=== PATIENT | female | born 1985 | race Caucasian/White ===

== ENCOUNTER 2022-04-01 16:26 | Emergency (ER) | payer MEDICARE, MEDICAID, SELFPAY ==
[2022-04-01 16:27] VITALS: BP 132/77; PULSE 134; RESP 18; TEMP 38.8; O2SAT 100; BMI 39.5
--- NOTE | 2022-04-01 16:29 | XR_ITS ---
PROCEDURE INFORMATION: Exam: XR Chest Exam date and time: 04/01/2022 4:43 PM Age: 36 years old Clinical indication: Fever TECHNIQUE: Imaging protocol: Radiologic exam of the chest. Views: 1 view. COMPARISON: No relevant prior studies available. FINDINGS: Lungs: Unremarkable. No consolidation. Pleural spaces: Unremarkable. No pleural effusion. No pneumothorax. Heart/Mediastinum: Unremarkable. No cardiomegaly. Bones/joints: Unremarkable. IMPRESSION: No acute findings.
--- NOTE | 2022-04-01 16:30 | HMH.EDGENADL ---
ED Disposition Clinical Impression: Panic attack Fever Qualifiers: Fever type: unspecified Qualified Code(s): R50.9 - Fever, unspecified Disposition: Home, Self-Care Condition on Discharge: Good Referrals: Jarett Stephens MD [Primary Care Provider] - - Critical Care Critical Care Time: No Attestation: On , the high probability of a clinically significant, sudden or life threatening deterioration of the following system(s) required my full and direct attention, intervention and personal management. The time I documented below is in addition to time spent performing reported procedures but includes the following listed in this critical care notation. Medical Decision Making - Medical Records Medical records reviewed: Yes: I reviewed the patient's medical records. - Esequiel Inquiry Pt receiving controlled substance: No Vital Signs: 04/01/22 16:27 04/01/22 18:37 Temperature 101.9 F H 98.1 F Temperature Source Rectal Oral Pulse Rate 110 H Pulse Rate [Brachial] 134 H Respiratory Rate 18 20 Blood Pressure 139/67 Blood Pressure [Right Arm] 132/77 Blood Pressure Mean [Right Arm] 95 Blood Pressure Source Automatic Cuff Blood Pressure Source [Right Arm] Automatic Cuff Blood Pressure Position Sitting Blood Pressure Position [Right Arm] Sitting 02 Sat by Pulse Oximetry 100 100 Oxygen Delivery Method Room Air Nasal Cannula Oxygen Flow Rate (LPM) 2 - Lab Data Lab Results 04/01/22 16:20: WBC 10.6, RBC 4.72, Hgb 13.2, Hct 40.3, MCV 85.3, MCH 28.0, MCHC 32.8, RDW 14.4, Plt Count 218, MPV 8.0, Neut % (Auto) 72.1, Lymph % (Auto) 16.9, [place] % (Auto) 8.5, Eos % (Auto) 0.9, Baso % (Auto) 1.6, Neut # (Auto) 7.6, Lymph # (Auto) 1.8, [place] # (Auto) 0.9, Eos # (Auto) 0.1, Baso # (Auto) 0.2 04/01/22 16:20: Sodium 135 L, Potassium 4.2, Chloride 101, Carbon Dioxide 24, Anion Gap 14.2, BUN 6 L, Creatinine 0.60, Estimated GFR 112, Est GFR ( Amer) 136, Glucose 141 H, Calcium 9.6, Total Bilirubin 0.4, AST 31, ALT 21, Alkaline Phosphatase 73, Total Protein 7.1, Albumin 4.0, Globulin 3.1, Albumin/Globulin Ratio 1.3 04/01/22 16:20: Lactate 2.0 04/01/22 16:32: Urine Color Straw, Urine Appearance Clear, Urine pH 6.5, Ur Specific [place] <= 1.005, Urine Protein Negative, Urine Glucose (UA) Negative, Urine Ketones Negative, Urine Blood Negative, Urine Nitrate Negative, Urine Bilirubin Negative, Urine Urobilinogen 0.2, Ur Leukocyte Esterase Negative, Urine RBC None, Urine WBC None, Ur Squamous Epith Cells None, Urine Bacteria None Result diagrams: 04/01/22 16:20 04/01/22 16:20 Orders (Tests/Meds): ED MEDICATIONS Discontinued Medications Generic Name Dose Route Start Last Admin Trade Name Freq PRN Reason Stop Dose Admin Acetaminophen 1,000 mg 04/01/22 16:29 04/01/22 16:51 Acetaminophen 500mg Tab PO 04/01/22 16:30 1,000 mg ONCE ONE Administration Diazepam 5 mg 04/01/22 17:25 04/01/22 18:13 Diazepam 5mg Tablet PO 04/01/22 17:26 5 mg ONCE ONE Administration Sodium Chloride 1,000 mls @ 999 mls/hr 04/01/22 16:30 04/01/22 18:13 Sod Chlor 0.9% 1000ml Bag IV 04/01/22 17:30 999 mls/hr .Q1H1M MARK Administration Sodium Chloride 1,000 mls @ 999 mls/hr 04/01/22 16:30 04/01/22 16:51 Sod Chlor 0.9% 1000ml Bag IV 04/01/22 17:30 999 mls/hr .Q1H1M MARK Administration ORDERS Category Date Time Status EKG Request [ECG Request by /Court] Stat Y 04/01/22 16:32 Ordered - ECG Data Tracing #1 I reviewed this ECG and interpreted as documented below: ekg by sinus 104, poss lae, no st elev - Reevaluation(s) Time: 17:32 (reeval, aox4, appears well, says she had a panic attack today, fever unexplained otherthan heavily clothed out in heat, still with some resting tremulous, otherwise neuro intact) Time: 18:34 Reevaluation #3: reeval, fever resolved, resolved, vss, appears well General Adult HPI - General Stated complaint: unresponsive Time Seen by Provider: 07
[2022-04-01 16:37] LABS: Basophils # 0.2 K/mm3 (0-0.2); Basophils % 1.6 % (0.1-2.0); Eosinophils # 0.1 K/mm3 (0.0-0.4); Eosinophils % 0.9 % (0.1-12.0); Hematocrit 40.3 % (37.0-47.0); Hemoglobin 13.2 g/dL (12.2-16.2); Lymphocytes # 1.8 K/mm3 (0.7-4.5); Lymphocytes % 16.9 % (10-50); Mean Corpuscular HGB Conc 32.8 g/dL (31.8-35.4); Mean Corpuscular Volume 85.3 fl (81-99); Monocytes # 0.9 K/mm3 (0.1-1.0); Monocytes % 8.5 % (1.7-9.3); Neutrophils # 7.6 K/mm3 (1.8-7.8); Neutrophils % 72.1 % (37.0-80.0); Platelet Count 218 K/mm3 (142-424); Red Blood Count 4.72 M/mm3 (4.20-5.40); Red Cell Distribution Width 14.4 % (11.5-17.5); White Blood Count 10.6 K/mm3 (4.8-10.8)
[2022-04-01 16:37] LABS: Microscopic, Urine URINE MICROSCOPIC (MICROSCOPIC)
[2022-04-01 16:38] LABS: Appearance,Urine CLEAR (Clear); Bilirubin,Urine Negative (Negative); Blood, Urine Negative (Negative); Color,Urine STRAW (Yellow); Glucose,Urine (UA) Negative (Negative); Ketones,Urine Negative (Negative); Leukocyte Esterase,Urine Negative (Negative); Nitrate,Urine Negative (Negative); PH,Urine 6.5 (5.0-8.5); Protein,Urine Negative (Negative); Specific Gravity, Urine <= 1.005 (1.005-1.030); Urobilinogen,Urine 0.2 EU/dl (0.2)
[2022-04-01 16:43] LABS: Chloride 101 mmol/L (98-107); Potassium 4.2 mmoL/L (3.5-5.1); Sodium 135 mmol/L (136-145)
[2022-04-01 16:46] LABS: Alanine Aminotransferase 21 U/L (12-78); Albumin/Globulin Ratio 1.3 (1.1-1.8); Alkaline Phosphatase 73 U/L (38-126); Anion Gap 14.2 mEq/L (5-15); Aspartate Amino Transferase 31 U/L (14-36); Bilirubin,Total 0.4 mg/dl (0.2-1.3); Blood Urea Nitrogen 6 mg/dl (7-17); Calcium 9.6 mg/dl (8.4-10.2); Carbon Dioxide 24 mmol/L (22.0-30.0); Estimated Glomerular Filt Rate 112 ml/min (>60); GFR (African American) 136 ML/MIN (>60); Globulin 3.1 g/dL (1.3-3.2); Glucose 141 mg/dl (74-100); Total Protein,Serum 7.1 g/dl (6.3-8.2)
--- NOTE | 2022-04-01 18:19 | ECG_ITS ---
APPROVED REPORT Exam: Resting ECG HR:104 bpm ECG Measurements Heart Rate 104 AXES VA 163 P 42 QRSd 83 QRS 8 QT 334 T 9 QTc 395 Conclusion SINUS TACHYCARDIA POSSIBLE LEFT ATRIAL ENLARGEMENT [-0.1mV P-WAVE IN V1/V2] ABNORMAL RHYTHM ECG UNCONFIRMED REPORT Electronically signed by : Steve Clark MD 04/02/2022 17:57:36
[2022-04-01 18:37] VITALS: BP 139/67; PULSE 110; RESP 20; TEMP 36.7; O2SAT 100
--- NOTE | 2022-04-01 19:15 | PC.NURSE ---
[facility] notified that patient is ready to go back
[2022-04-01 20:14] VITALS: BP 140/68; PULSE 100; RESP 18; TEMP 36.8; O2SAT 99
== END 2022-04-01 20:32 | disposition home or self-care (01) ==
PROVIDERS: Emergency Provider Emergency Medicine; PCP Emergency Medicine
DX: R50.9 Fever, unspecified (principal)
CPT/HCPCS: 71045; 80053; 81001; 83605; 85025; 93005; 99213; G0463

== ENCOUNTER → 2022-06-09 10:53 | Outpatient (CLI) | payer MEDICARE, MEDICAID, SELFPAY ==
--- NOTE | 2022-06-17 09:30 | PC.NURSE ---
[facility] DEVICE SENT WITH PATIENT - RETURNED WITH NO DATA - NO CHARGE TO PATIENT - [facility] OFFICE NOTIFIED.
== END ==
PROVIDERS: PCP Nurse Practitioner Family; Visit Provider Nurse Practitioner Family
DX: G47.33 Obstructive sleep apnea (adult) (pediatric) (principal)
CPT/HCPCS: G0399

== ENCOUNTER 2022-06-19 13:06 | Emergency (ER) | payer MEDICARE, MEDICAID, SELFPAY ==
[2022-06-19 13:06] VITALS: BP 117/84; PULSE 106; RESP 18; TEMP 36.5; O2SAT 94; BMI 34.9
--- NOTE | 2022-06-19 13:09 | XR_ITS ---
FINAL REPORT CLINICAL HISTORY: SOB/CP COMPARISON: April 01, 2022 FINDINGS: The heart size is normal. The mediastinum is within normal limits. Lungs are hypoinflated but clear. There is no pleural effusion. There is no pneumothorax. The bony thorax is intact. IMPRESSION: No acute cardiopulmonary process. Reviewed, Interpreted and Dictated by Erlinda Cheema MD Transcribed by James Ramos Authenticated and [facility]
--- NOTE | 2022-06-19 13:10 | HMH.EDGENADL ---
Discharge Plan Disposition Patient Disposition: Home, Self-Care Condition: Good Prescriptions Prescriptions: No Action medroxyprogesterone [Depo-Provera] 150 mg/mL suspension 150 mg IM [id number] Qty: 1 2RF Referrals Follow up/Referrals: Jarett Stephens MD [Primary Care Provider] - See instructions Clinical Impressions Clinical Impression: Sinus tachycardia, Hypertension Discharge ED Provider: Royal Eduardo General Adult HPI General Chief complaint: Recheck/Abnormal Lab/Rx Stated complaint: GENERAL WEAKNESS Time Seen by Provider: 06/19/22 13:12 History of Present Illness HPI narrative: 36-year-old female brought in by EMS for persistent elevated heart rate and blood pressure. This had been discussed with her PCP who advised evaluation in the emergency department. She states she is on some psychiatric medications which she had been off of for a few days and became very anxious. Reported initial heart rate was in the 140s and is about 110 currently. She denies any chest pain, shortness of breath, nausea, vomiting, diaphoresis, palpitations, lightheadedness or dizziness, leg swelling, history of DVT or PE. Denies any other symptoms at this time Related Data Previous Rx's Medication Instructions Recorded medroxyprogesterone 150 mg/mL 150 mg IM [id number] #1 mL 05/02/22 intramuscular suspension (Depo-Provera) Allergies Allergy/AdvReac Type Severity Reaction Status Date / Time latex Allergy Verified 06/19/22 13:17 guaifenesin [From Mucinex] AdvReac Verified 06/19/22 13:17 pseudoephedrine AdvReac Verified 06/19/22 13:17 [From Sudafed] [facility] Social History Smoking Status: Never smoker alcohol intake: never current occupational status: unemployed Travel in the last 8 weeks: None ROS Obtained: Yes Systems reviewed as appropriate & no additional complaints except as documented Constitutional Constitutional: Reports system reviewed and no additional complaints, except as documented Eyes Eyes: Reports system reviewed and no additional complaints, except as documented ENT Ears, Nose, Mouth, and Throat: Reports system reviewed and no additional complaints, except as documented Cardiovascular Cardiovascular: Reports system reviewed and no additional complaints, except as documented Respiratory Respiratory: Reports system reviewed and no additional complaints, except as documented Gastrointestinal Gastrointestingal: Reports system reviewed and no additional complaints, except as documented Genitourinary Female Genitourinary: Reports system reviewed and no additional complaints, except as documented Musculoskeletal Musculoskeletal: Reports system reviewed and no additional complaints, except as documented Integumentary/Breasts Skin/Breast: Reports system reviewed and no additional complaints, except as documented Neurologic Neurologic: Reports system reviewed and no additional complaints, except as documented Endocrine Endocrine: Reports system reviewed and no additional complaints, except as documented Hematologic/Lymphatic Henatologic/Lymphatic: Reports system reviewed and no additional complaints, except as documented Allergic/Immunologic Allergic/Immunologic: Reports system reviewed and no additional complaints, except as documented Physical Exam General General appearance: alert and in no apparent distress Head Head exam: atraumatic, normocephalic and normal inspection Eye Eye exam: Present normal appearance, PERRL and EOMI ENT ENT exam: Present normal exam, normal oropharynx, mucous membranes moist, TM's normal bilaterally and normal external ear exam Neck Neck exam: Present normal inspection, full ROM and trachea midline; Absent meningismus or lymphadenopathy Chest Chest inspection: Present normal inspection and symmetric chest wall rise; Absent tenderness Respiratory Respiratory exam: Present normal lung sounds bilaterally
[2022-06-19 13:21] VITALS: PULSE 109; O2SAT 94
--- NOTE | 2022-06-19 13:23 | ECG_ITS ---
APPROVED REPORT Exam: Resting ECG HR:99 bpm ECG Measurements Heart Rate 99 AXES NC 163 P 53 QRSd 85 QRS 53 QT 344 T 20 QTc 400 Conclusion SINUS RHYTHM LOW QRS VOLTAGE IN PRECORDIAL LEADS [QRS DEFLECTION < 1.0 mV IN CHEST LEADS] NONSPECIFIC T-WAVE ABNORMALITY BORDERLINE ECG UNCONFIRMED REPORT Electronically signed by : Steve Clark MD 06/19/2022 15:55:49
[2022-06-19 13:28] LABS: Basophils # 0.1 K/mm3 (0-0.2); Basophils % 0.8 % (0.1-2.0); Eosinophils # 0.1 K/mm3 (0.0-0.4); Eosinophils % 2.2 % (0.1-12.0); Hematocrit 39.2 % (37.0-47.0); Hemoglobin 12.8 g/dL (12.2-16.2); Lymphocytes % 32.5 % (10-50); Mean Corpuscular HGB Conc 32.7 g/dL (31.8-35.4); Mean Corpuscular Hemoglobin 27.9 pg (27.0-31.2); Mean Corpuscular Volume 85.4 fl (81-99); Mean Platelet Volume 7.5 fl (7.4-10.4); Monocytes # 0.5 K/mm3 (0.1-1.0); Neutrophils # 3.4 K/mm3 (1.8-7.8); Neutrophils % 55.5 % (37.0-80.0); Platelet Count 179 K/mm3 (142-424); Red Cell Distribution Width 15.3 % (11.5-17.5); White Blood Count 6.1 K/mm3 (4.8-10.8)
[2022-06-19 13:31] VITALS: BP 121/100; PULSE 109; O2SAT 97
[2022-06-19 13:31] LABS: Chloride 100 mmol/L (98-107); Potassium 3.8 mmoL/L (3.5-5.1); Sodium 139 mmol/L (136-145)
[2022-06-19 13:34] LABS: Alanine Aminotransferase 22 U/L (12-78); Albumin Level 3.6 g/dl (3.5-5.0); Albumin/Globulin Ratio 1.2 (1.1-1.8); Alkaline Phosphatase 87 U/L (38-126); Anion Gap 16.8 mEq/L (5-15); Aspartate Amino Transferase 30 U/L (14-36); Blood Urea Nitrogen 6 mg/dl (7-17); Calcium 8.3 mg/dl (8.4-10.2); Carbon Dioxide 26 mmol/L (22.0-30.0); Creatinine Clearance Estimated 136 mL/min (50-200); Estimated Glomerular Filt Rate 94 ml/min (>60); GFR (African American) 114 ML/MIN (>60); Globulin 2.9 g/dL (1.3-3.2); Glucose 177 mg/dl (74-100); Total Protein,Serum 6.5 g/dl (6.3-8.2)
[2022-06-19 13:35] LABS: Magnesium 1.6 mg/dl (1.6-2.3)
[2022-06-19 13:40] LABS: Bilirubin,Total < 0.1 mg/dl (0.2-1.3)
[2022-06-19 13:44] LABS: NT Pro Brain Natriuretic Pep. 28.4 pg/mL (0-125)
[2022-06-19 13:49] LABS: Troponin I < 0.01 ng/ml (0.00-0.034)
[2022-06-19 14:00] VITALS: BP 114/87; PULSE 98; O2SAT 96
[2022-06-19 14:30] VITALS: BP 121/82; PULSE 94; RESP 17; O2SAT 98
--- NOTE | 2022-06-19 14:50 | PC.NURSE ---
pt sitting up in chair, waiting to be discharged
[2022-06-19 15:22] VITALS: BP 119/80; PULSE 92; RESP 17; TEMP 36.6; O2SAT 98
== END 2022-06-19 15:23 | disposition home or self-care (01) ==
PROVIDERS: Emergency Provider Emergency Medicine; PCP Emergency Medicine
DX: I10 Essential (primary) hypertension (principal); R00.0 Tachycardia, unspecified; Z79.899 Other long term (current) drug therapy; Z88.8 Allergy status to other drugs, medicaments and biological substances; Z91.040 Latex allergy status
CPT/HCPCS: 71045; 80053; 83735; 83880; 84443; 84484; 85025; 93005; 96365; 99284

== ENCOUNTER → 2022-09-01 09:37 | Outpatient (CLI) | payer MEDICARE, MEDICAID, SELFPAY ==
--- NOTE | 2022-09-01 09:55 | MM_ITS ---
PROCEDURE INFORMATION: Exam: Bilateral Screening 3D Mammography Exam date and time: 09/01/2022 10:04 AM Age: 37 years old Clinical indication: Baseline. No family history of breast cancer. TECHNIQUE: Imaging protocol: Bilateral Screening tomosynthesis and 2D mammography including computer-aided detection (CAD) when performed. COMPARISON: No relevant prior studies available. FINDINGS: MAMMOGRAPHY: Breast composition: The breasts are almost entirely fatty. Mass: Scattered bilateral circumscribed, less than 0.5 cm, masses. No suspicious mass Architectural distortion: None. Calcifications: No suspicious calcifications. Asymmetric density: None. Skin thickening: None. Axillary adenopathy: None. IMPRESSION: Scattered bilateral sub cm circumscribed masses may be considered a benign finding on screening mammography. Annual screening mammography recommended unless otherwise clinically indicated. ASSESSMENT: BI-RADS Category 2: Benign
== END ==
PROVIDERS: PCP Emergency Medicine; Visit Provider Emergency Medicine
DX: Z12.31 Encounter for screening mammogram for malignant neoplasm of breast (principal)
CPT/HCPCS: 77063; 77067

== ENCOUNTER 2022-10-23 22:56 | Emergency (ER) | payer MEDICARE, MEDICAID, SELFPAY ==
--- NOTE | 2022-10-23 22:56 | ECG_ITS ---
APPROVED REPORT Exam: Resting ECG HR:106 bpm ECG Measurements Heart Rate 106 AXES MT 147 P 65 QRSd 79 QRS 37 QT 341 T 41 QTc 403 Conclusion SINUS TACHYCARDIA ABNORMAL RHYTHM ECG UNCONFIRMED REPORT Electronically signed by : Steve Clark MD 10/24/2022 20:54:33
[2022-10-23 22:58] VITALS: BMI 38.3
--- NOTE | 2022-10-23 23:00 | XR_ITS ---
PROCEDURE INFORMATION: Exam: XR Chest Exam date and time: 10/23/2022 10:59 PM Age: 37 years old Clinical indication: Sternal or substernal pain; Additional info: Chest pain TECHNIQUE: Imaging protocol: Radiologic exam of the chest. Views: 2 views. COMPARISON: CR XR CHEST PORTABLE 06/19/2022 1:40 PM FINDINGS: Lungs: Unremarkable. No consolidation. Pleural spaces: Unremarkable. No pleural effusion. No pneumothorax. Heart/Mediastinum: Unremarkable. No cardiomegaly. Bones/joints: Unremarkable. IMPRESSION: No acute findings.
[2022-10-23 23:04] VITALS: RESP 17; TEMP 36.8; O2SAT 95; BMI 38.3
[2022-10-23 23:17] LABS: Basophils # 0.1 K/mm3 (0-0.2); Basophils % 1.4 % (0.1-2.0); Eosinophils # 0.1 K/mm3 (0.0-0.4); Hematocrit 43.9 % (37.0-47.0); Hemoglobin 13.9 g/dL (12.2-16.2); Lymphocytes # 2.4 K/mm3 (0.7-4.5); Lymphocytes % 42.8 % (10-50); Mean Corpuscular HGB Conc 31.7 g/dL (31.8-35.4); Mean Corpuscular Hemoglobin 27.4 pg (27.0-31.2); Mean Corpuscular Volume 86.2 fl (81-99); Mean Platelet Volume 7.3 fl (7.4-10.4); Monocytes # 0.4 K/mm3 (0.1-1.0); Monocytes % 7.1 % (1.7-9.3); Neutrophils # 2.7 K/mm3 (1.8-7.8); Neutrophils % 47.8 % (37.0-80.0); Platelet Count 187 K/mm3 (142-424); Red Blood Count 5.09 M/mm3 (4.20-5.40); Red Cell Distribution Width 14.7 % (11.5-17.5); White Blood Count 5.6 K/mm3 (4.8-10.8)
--- NOTE | 2022-10-23 23:22 | HMH.EDCP ---
Discharge Plan Disposition Patient Disposition: Home, Self-Care Chief Complaint: Chest Pain Prescriptions Prescriptions: No Action medroxyprogesterone [Depo-Provera] 150 mg/mL suspension 150 mg IM [id number] Qty: 1 2RF Referrals Follow up/Referrals: Jarett Stephens MD [Primary Care Provider] - See instructions Clinical Impressions Clinical Impression: Atypical chest pain, Schizophrenia, Cholelithiasis Instructions Patient Instructions: DI for Atypical Chest Pain, DI for Gallstones Discharge ED Provider: Angelo (ED)Jarett Chest Pain HPI General Chief Complaint: Chest Pain Stated Complaint: chest pain Time Seen by Provider: 10/23/22 23:22 Mode of Arrival: EMS Source of Information: Patient and Medical Record Limitations: No Limitations Description of Symptoms (Recalled from ER Triage Doc. by RN): pt to ED from [facility] with midsternal chest pain that she reports feels like a heavy pressure and rates it an 8 at this time. pt also reports that she has smoked 6 cigars today. History of Present Illness HPI narrative: lower ant chest pain with assoc epigastric pain - no known card dis MD complaint: chest pain indicative of cardiac Onset (ago): hour(s) Duration: intermittent Activity at onset: during rest Pain location: epigastric Severity: moderate Quality: aching Risk Factors for CAD: Family Hx of CAD and Smoking Treatments prior to or on arrival for Cardiac Chest Pain: none RAISA Score for Non-Stemi Age of Patient: 30-39 years old Heart Rate: 90-109 bpm Systolic Blood Pressure: 140-159 mmHg Serum Creatinine: 0.80-1.19 mg/dl CHF [place] Class: I-No CHF Other Risk Factors: None Non-Stemi Risk Score: 54 Risk Stratification: 1-108 = Low Risk Related Data On Oral Contraceptives: No Previous Rx's Medication Instructions Recorded medroxyprogesterone 150 mg/mL 150 mg IM [id number] #1 mL 05/02/22 intramuscular suspension (Depo-Provera) Allergies Allergy/AdvReac Type Severity Reaction Status Date / Time latex Allergy Verified 09/16/22 09:46 guaifenesin [From Mucinex] AdvReac Verified 09/16/22 09:46 pseudoephedrine AdvReac Verified 09/16/22 09:46 [From Sudafed] [facility] Disclaimer: The information contained in this section may have been updated after the patient was seen, as this information can be updated by other users. Medical History Anxiety Bicornuate uterus Borderline personality disorder Depression History of prediabetes Seizure disorder Family History Other Alcoholism Asthma Bleeding disorder Cancer Coronary artery disease Diabetes FHx: mental illness Heart attack Hyperlipidemia Hypertension Kidney disease Stroke Substance abuse Social History Smoking Status: Heavy tobacco smoker alcohol intake: never current occupational status: unemployed Travel in the last 8 weeks: None ROS Obtained: Yes All systems reviewed & no additional complaints except as documented Physical Exam General General appearance: alert and obese Head Head exam: normocephalic Eye Eye exam: Present PERRL and EOMI ENT ENT exam: Present mucous membranes moist Neck Neck exam: Present trachea midline Respiratory Respiratory exam: Present normal lung sounds bilaterally; Absent respiratory distress Cardiovascular Cardiovascular exam: Present regular rate Abdominal Exam Abdominal exam: Present soft and tenderness; Absent guarding or rebound Abdominal tenderness: Present epigastrium and mild Extremities Exam Extremities exam: Present full ROM Neurological Exam Neurological exam: Present alert, oriented X3 and CN II-XII intact; Absent motor sensory deficit Psychiatric Psychiatric exam: Present normal affect Skin Skin exam: Present rash Medical Decision Making Medical Records Medical records reviewed: Doretha
[2022-10-23 23:24] LABS: Amylase 49 U/L (30-110); Blood Urea Nitrogen 12 mg/dl (7-17); Calcium 8.7 mg/dl (8.4-10.2); Carbon Dioxide 33 mmol/L (22.0-30.0); Chloride 102 mmol/L (98-107); Creatinine Clearance Estimated 130 mL/min (50-200); Estimated Glomerular Filt Rate 80 ml/min (>60); GFR (African American) 97 ML/MIN (>60); Glucose 143 mg/dl (74-100); Sodium 138 mmol/L (136-145)
[2022-10-23 23:37] LABS: NT Pro Brain Natriuretic Pep. 33.3 pg/mL (0-125)
--- NOTE | 2022-10-23 23:37 | CT_ITS ---
PROCEDURE INFORMATION: Exam: CT Abdomen And Pelvis With Contrast Exam date and time: 10/23/2022 11:55 PM Age: 37 years old Clinical indication: Pain; Other: Chest; Prior surgery; Additional info: Cp TECHNIQUE: Imaging protocol: Computed tomography of the abdomen and pelvis with contrast. Radiation optimization: All CT scans at this facility use at least one of these dose optimization techniques: automated exposure control; mA and/or kV adjustment per patient size (includes targeted exams where dose is matched to clinical indication); or iterative reconstruction. Contrast material: ISOVUE; Contrast volume: 75 ml; Contrast route: IV; Other protocol: This patient has received 0 known CTs and 0 known cardiac nuclear medicine studies in the 12 months prior to the current study. COMPARISON: CR XR CHEST 2V 10/23/2022 10:59 PM FINDINGS: Lungs: Lung bases are clear. Liver: Normal. No mass. Gallbladder and bile ducts: Mildly distended gallbladder with calcified gallstones. No biliary dilatation. Pancreas: Normal. No ductal dilation. Spleen: Normal. No splenomegaly. Adrenal glands: Normal. No mass. Kidneys and ureters: Normal. No hydronephrosis. Stomach and bowel: Unremarkable. No obstruction. No mucosal thickening. Appendix: Normal appendix. Intraperitoneal space: Unremarkable. No free air. No significant fluid collection. Vasculature: Unremarkable. No abdominal aortic aneurysm. Lymph nodes: Unremarkable. No enlarged lymph nodes. Urinary bladder: Unremarkable as visualized. Reproductive: Questionable bicornuate uterus. Ovaries appear unremarkable. Bones/joints: No acute osseous abnormality. [id number] degenerative changes throughout the lumbar spine without severe spinal stenosis. Soft tissues: Unremarkable. IMPRESSION: 1. Mildly distended gallbladder with calcified gallstones. 2. Normal appendix.
[2022-10-23 23:40] VITALS: BP 144/99; PULSE 98; O2SAT 94
[2022-10-23 23:41] LABS: Troponin I < 0.01 ng/ml (0.00-0.034)
[2022-10-23 23:47] LABS: Lipase 89 U/L (23-300)
[2022-10-24] VITALS (17 sets, daily range): BP systolic 112–142; BP diastolic 73–96; PULSE 79–104; RESP 11–21; TEMP 36.8; O2SAT 90–98
[2022-10-24 02:18] LABS: Troponin I < 0.01 ng/ml (0.00-0.034)
--- NOTE | 2022-10-24 04:52 | US_ITS ---
FINAL REPORT CLINICAL HISTORY: gallbladder stones FINDINGS: Sonographic images of the right upper quadrant were obtained. The pancreas is partially obscured. There is fatty infiltration of the liver. There is gallbladder wall thickening measuring 7 mm. Multiple large gallstones are identified. There is no evidence of biliary ductal dilatation.The common duct measures 3 mm. Limited images of the right kidney are unremarkable. IMPRESSION: Gallstones with gallbladder wall thickening, cholecystitis is not excluded. If indicated, nuclear medicine hepatic biliary scan may be helpful. Fatty liver. Reviewed, Interpreted and Dictated by Raleigh Driscoll III, MD Transcribed by Zoila Motley Authenticated and [facility]
--- NOTE | 2022-10-24 08:20 | PC.NURSE ---
pt in ultrasound
--- NOTE | 2022-10-24 08:30 | PC.NURSE ---
per dr. phillips pt is will be ready to to d/c when her ultrasound is resulted.
--- NOTE | 2022-10-24 09:07 | PC.NURSE ---
notified [facility] staff that pt is ready for d/c
--- NOTE | 2022-10-24 09:21 | PC.NURSE ---
fabiola darby is here to take her back to [facility]
== END 2022-10-24 09:35 | disposition home or self-care (01) ==
PROVIDERS: Emergency Provider Emergency Medicine; PCP Emergency Medicine
DX: R07.89 Other chest pain (principal); K80.80 Other cholelithiasis without obstruction; F20.9 Schizophrenia, unspecified; F41.9 Anxiety disorder, unspecified; R73.03 Prediabetes; F17.290 Nicotine dependence, other tobacco product, uncomplicated
CPT/HCPCS: 71046; 74177; 76705; 80048; 82150; 83690; 83880; 84484; 85025; 93005; 96361; 96374; 96375; 99285; Q9967

== ENCOUNTER 2022-11-12 10:36 | Emergency (ER) | payer MEDICARE, MEDICAID, SELFPAY ==
[2022-11-12] VITALS (11 sets, daily range): BP systolic 94–147; BP diastolic 33–105; PULSE 93–138; RESP 14–21; TEMP 36.5–36.6; O2SAT 94–98; BMI 38.3
--- NOTE | 2022-11-12 10:49 | ECG_ITS ---
APPROVED REPORT Exam: Resting ECG HR:127 bpm ECG Measurements Heart Rate 127 AXES OR 159 P 31 QRSd 70 QRS 18 QT 335 T 41 QTc 410 Conclusion SINUS TACHYCARDIA NONSPECIFIC T-WAVE ABNORMALITY ABNORMAL RHYTHM ECG UNCONFIRMED REPORT Electronically signed by : Steve Clark MD 11/12/2022 14:11:06
--- NOTE | 2022-11-12 11:04 | XR_ITS ---
FINAL REPORT CLINICAL HISTORY: ELEVATED HR COMPARISON: 10/23/2022 FINDINGS: A single portable view of the chest was obtained. The heart size and pulmonary vascularity are within normal limits. The mediastinum is within normal limits. No acute pulmonary abnormality is identified. The bony thorax is intact. IMPRESSION: No active cardiopulmonary disease. Reviewed, Interpreted and Dictated by Raleigh Driscoll III, MD Transcribed by Alis Barrios Authenticated and [facility]
[2022-11-12 11:31] LABS: Basophils # 0.1 K/mm3 (0-0.2); Basophils % 0.9 % (0.1-2.0); Eosinophils # 0.1 K/mm3 (0.0-0.4); Eosinophils % 1.5 % (0.1-12.0); Hematocrit 40.2 % (37.0-47.0); Hemoglobin 13.4 g/dL (12.2-16.2); Lymphocytes # 1.7 K/mm3 (0.7-4.5); Lymphocytes % 23.8 % (10-50); Mean Corpuscular HGB Conc 33.4 g/dL (31.8-35.4); Mean Corpuscular Hemoglobin 27.8 pg (27.0-31.2); Mean Corpuscular Volume 83.3 fl (81-99); Mean Platelet Volume 7.4 fl (7.4-10.4); Monocytes # 0.6 K/mm3 (0.1-1.0); Monocytes % 7.9 % (1.7-9.3); Neutrophils # 4.7 K/mm3 (1.8-7.8); Neutrophils % 65.9 % (37.0-80.0); Platelet Count 230 K/mm3 (142-424); Red Blood Count 4.82 M/mm3 (4.20-5.40); Red Cell Distribution Width 14.9 % (11.5-17.5); White Blood Count 7.1 K/mm3 (4.8-10.8)
[2022-11-12 11:33] LABS: Alanine Aminotransferase 21 U/L (12-78); Albumin Level 3.9 g/dl (3.5-5.0); Albumin/Globulin Ratio 1.2 (1.1-1.8); Alkaline Phosphatase 83 U/L (38-126); Anion Gap 7.6 mEq/L (5-15); Aspartate Amino Transferase 41 U/L (14-36); Bilirubin,Total 0.6 mg/dl (0.2-1.3); Blood Urea Nitrogen 5 mg/dl (7-17); Calcium 8.5 mg/dl (8.4-10.2); Carbon Dioxide 26 mmol/L (22.0-30.0); Chloride 104 mmol/L (98-107); Creatinine Clearance Estimated 148 mL/min (50-200); Estimated Glomerular Filt Rate 94 ml/min (>60); GFR (African American) 113 ML/MIN (>60); Globulin 3.2 g/dL (1.3-3.2); Glucose 138 mg/dl (74-100); Potassium 3.6 mmoL/L (3.5-5.1); Sodium 134 mmol/L (136-145); Total Protein,Serum 7.1 g/dl (6.3-8.2)
[2022-11-12 12:00] LABS: Troponin I < 0.01 ng/ml (0.00-0.034)
--- NOTE | 2022-11-12 12:28 | PC.NURSE ---
PT ASSISTED TO BR AT THIS TIME
--- NOTE | 2022-11-12 12:58 | HMH.EDGENADL ---
Discharge Plan Disposition Patient Disposition: Home, Self-Care Condition: Good Chief Complaint: Arrhythmia/Palpitations Prescriptions Prescriptions: No Action acetaminophen 500 mg tablet 500 mg PO hydroxyzine pamoate 50 mg capsule 50 mg PO loperamide 2 mg capsule 2 mg PO loratadine 10 mg tablet 10 mg PO risperidone 1 mg tablet 1 mg PO atorvastatin 10 mg tablet 10 mg PO mirtazapine 15 mg tablet 15 mg PO benztropine 1 mg tablet 1 mg PO divalproex 500 mg tablet,delayed release (DR/EC) PO medroxyprogesterone [Depo-Provera] 150 mg/mL suspension 150 mg IM [id number] Qty: 1 2RF Referrals Follow up/Referrals: Jarett Stephens MD [Primary Care Provider] - See instructions Activity Restrictions/Add. Instructions Additional Instructions/Restrictions: Follow-up with surgery for treatment of gallbladder as scheduled. Follow-up with primary care provider for further care. Clinical Impressions Clinical Impression: Sinus tachycardia Instructions Patient Instructions: DI for Tachycardia Discharge ED Provider: Blade Vasques General Adult HPI General Chief complaint: Arrhythmia/Palpitations Stated complaint: High pulse Phys ref Time Seen by Provider: 11/12/22 12:58 Mode of Arrival: Wheelchair Limitations: No Limitations Description of Symptoms (Recalled from ER Triage Doc. by RN): PT SENT FROM GENERAL SURGERY FOR ELEVATED HR OF 140. AT OFFICE FOR SURGERY CONSULT FOR GALLSTONES. PT DENIES ANY CARDIAC SYMPTOMS. REPORTS TENDERNESS TO RIGHT SIDE, NO DIFFERENT. History of Present Illness HPI narrative: Patient is sent to the emergency department by surgery office. History obtained from patient and mother. The patient is a resident of [facility]. She was seeing the surgeons in the office today for cholelithiasis. She was found to have a high heart rate in the 140s and therefore was sent to the emergency department. Patient states she feels anxious, but otherwise has no specific complaints. No recent illness. No fever, cough, vomiting, diarrhea, urinary symptoms. Denies palpitations, shortness of breath, chest pain. No leg pain except that she had a cramp in her right leg a few minutes ago which resolved. She has a history of tachycardia off and on throughout her life. She says when she was initially diagnosed with a psychiatric problem she had a heart rate in the 150s. She is also been seen in this emergency department last year for sinus tachycardia. No cause has been found. She says at one point she is seeing a straightening roll operator. She has had a cardiac echocardiogram. She was at one time put on lisinopril which she says dropped her blood pressure too low and had to be stopped. Related Data Home Medications Medication Instructions Recorded Confirmed acetaminophen 500 mg tablet 500 mg PO 11/12/22 11/12/22 atorvastatin 10 mg tablet 10 mg PO 11/12/22 11/12/22 benztropine 1 mg tablet 1 mg PO 11/12/22 11/12/22 divalproex 500 mg tablet,delayed tab PO 11/12/22 11/12/22 release hydroxyzine pamoate 50 mg capsule 50 mg PO 11/12/22 11/12/22 loperamide 2 mg capsule 2 mg PO 11/12/22 11/12/22 loratadine 10 mg tablet 10 mg PO 11/12/22 11/12/22 mirtazapine 15 mg tablet 15 mg PO 11/12/22 11/12/22 risperidone 1 mg tablet 1 mg PO 11/12/22 11/12/22 Previous Rx's Medication Instructions Recorded medroxyprogesterone 150 mg/mL 150 mg IM [id number] #1 mL 05/02/22 intramuscular suspension (Depo-Provera) Allergies Allergy/AdvReac Type Severity Reaction Status Date / Time latex Allergy Verified 11/12/22 10:22 guaifenesin [From Mucinex] AdvReac Verified 11/12/22 10:22 pseudoephedrine AdvReac Verified 11/12/22 10:22 [From Sudafed] [facility] Disclaimer: The information contained in this section may have been updated after the patient was seen, as this information can be updated by other users. Medical History (Reviewed 11/12/22
--- NOTE | 2022-11-12 13:04 | PC.NURSE ---
ARCHIE ZHAO at
--- NOTE | 2022-11-12 13:12 | PC.NURSE ---
DR KELLEY AT BEDSIDE
--- NOTE | 2022-11-12 13:16 | PC.NURSE ---
notified cardiology office of consult on pt
[2022-11-12 13:30] LABS: D-Dimer 0.71 ug/mL (0.0-0.5)
[2022-11-12 13:44] LABS: Free Thyroxine Index 2.7 ug/dL (5.93-13.13); T4 (Thyroxine) 8.9 ug/dl (5.53-11.0); Triiodothryronine (T3) Uptake 30 % (23.5-40.5)
--- NOTE | 2022-11-12 13:46 | CT_ITS ---
FINAL REPORT CLINICAL HISTORY: tachycardia, elev d-dimer FINDINGS: Thin section axial CT images of the chest were obtained with contrast. 3D reformatted images were also obtained. This study was performed with techniques to keep radiation doses as low as reasonably achievable (ALARA). Individualized dose reduction techniques using automated exposure control or adjustment of mA and/or kV according to the patient's size were employed. 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 There is no evidence of pulmonary embolism. There is no evidence of thoracic aortic aneurysm or dissection. There is no evidence of mediastinal or hilar mass or adenopathy. There is mild atelectasis. There are mild pulmonary ground-glass opacities, favor edema. Limited images of the upper abdomen are unremarkable. IMPRESSION: No evidence of pulmonary embolism. Mild pulmonary ground-glass opacities, favor edema. Reviewed, Interpreted and Dictated by Raleigh Driscoll III, MD Transcribed by Zoila Motley Authenticated and [facility]
--- NOTE | 2022-11-12 13:47 | CA_ITS ---
APPROVED REPORT EXAM: Comprehensive 2D, Doppler, and color-flow Echocardiogram Converter Operator: Lucero Jj CRT Ht: 4 ft 11 in Wt: 190lbs BSA: 1.80 BP: 125/103 mmHg Indications: Arrhythmia, TACHYCARDIA 2D Dimensions LVOT 2.03 cm (M/F) 1.5-2.5 M-Mode Dimensions RVDd 2.62 cm (0.9-2.6) LA Diam 3.49 cm (1.9-4.0) LVDd 3.68 cm (3.5-5.7) Ao Diam 3.30 cm (2.0-3.7) LVDs 2.65 cm (3.5-5.7) IVSd 1.03 cm (0.6-1.1) PWd 0.72 cm (0.6-1.1) EF (Teich) 55.10% FS 28.00% EDV (Teich) 57.40 mL TAPSE 2.22 (<1.7) ESV (Teich) 25.80 mL LV Diastology MED E' 13.80 (< 7 cm/sec) MED A' 17.40 cm/s LAT E' 9.20 (<10 cm/sec) LAT A' 12.60 cm/s Aortic Valve AO Peak GR. 7.10 mmHg Pulmonary Valve PV Peak Velocity 115.00 (50-150 cm/s) Tricuspid Valve TR P. Velocity 345.00 cm/s RAP Estimate 10.00 mmHg RVSP 57.70 mmHg Left Ventricle Left atrium is normal size left ventricle is normal size, estimated ejection fraction 55% with no regional wall motion abnormality, diastolic parameters are within normal range. Right Ventricle Right atrium and right ventricular normal size and contractility. Aortic Valve Aortic valve is grossly normal there is no aortic stenosis or aortic insufficiency. Mitral Valve Mitral valve is grossly normal, there is trace mitral regurgitation. Tricuspid Valve Tricuspid valve grossly normal, there is trace tricuspid regurgitation, tricuspid regurgitation jet velocity is inadequate for calculation of the right ventricular systolic pressure. Pulmonic Valve Pulmonic valve is poorly visualized. Great Vessels Aortic root is normal size. Inferior vena cava is normal size with normal inspiratory collapse. Pericardium No significant pericardial effusion noted. Conclusion 1. Normal left ventricular size preserved left ventricular systolic function, estimated ejection fraction 55% with no regional wall motion abnormality, diastolic parameters are within normal range. 2. Trace mitral and tricuspid regurgitation. 3. No significant pericardial effusion. 4. Inferior vena cava is normal size with normal inspiratory collapse. Electronically signed by : Sammy Don MD 11/13/2022 06:05:03
--- NOTE | 2022-11-12 13:56 | PC.NURSE ---
notified vascular lab staff of echo order
--- NOTE | 2022-11-12 13:56 | PC.NURSE ---
geo kaminski at BS
[2022-11-12 13:58] LABS: Thyroid Stimulating Hormone 1.35 uIU/mL (0.465-4.68)
--- NOTE | 2022-11-12 14:05 | PC.NURSE ---
PT TO RADIOLOGY AT THIS TIME
--- NOTE | 2022-11-12 14:18 | PC.NURSE ---
ECHO AT BEDSIDE
--- NOTE | 2022-11-12 14:26 | EXP.CARD.CON ---
History of Present Illness History of Present Illness Consult date: 11/12/22 Requesting physician: Blade Vasques Chief complaint: abdominal pain, tachycardia Additional Medical History:: 1. History of sinus tachycardia A. Previous cardiology evaluation several years ago the patient does not not recall any type of stress test or heart cath in the past 2. History of psychotic breakdown in her mid teens 3. Presumed conversion disorder with possible epilepsy, controlled on antiseizure medication 4. History of anxiety and panic attacks 5. Cholelithiasis, 11/12/2022 6. Prediabetes, diet controlled with recent hemoglobin in the 5 range per patient History of present illness: Patient is sent to the emergency department by surgery office. History obtained from patient and mother.? The patient is a resident of [facility].? She was seeing the surgeons in the office today for cholelithiasis.? She was found to have a high heart rate in the 140s and therefore was sent to the emergency department.? Patient states she feels anxious, but otherwise has no specific complaints.? No recent illness.? No fever, cough, vomiting, diarrhea, urinary symptoms.? Denies palpitations, shortness of breath, chest pain.? No leg pain except that she had a cramp in her right leg a few minutes ago which resolved.? She has a history of tachycardia off and on throughout her life.? She says when she was initially diagnosed with a psychiatric problem she had a heart rate in the 150s.? She is also been seen in this emergency department last year for sinus tachycardia.? No cause has been found.? She says at one point she is seeing a plug wirer.? She has had a cardiac echocardiogram.? She was at one time put on lisinopril which she says dropped her blood pressure too low and had to be stopped. The above per Dr. Vasques Pleasant white female in no acute distress. Resting tremor of the upper extremities noted. Patient denies any chest pain at this time. Cardiology consulted due to sinus tachycardia noted on telemetry. Unclear of prior medications tried for chronic tachycardia but patient reportedly was on lisinopril in the past for blood pressure but due to frequent falls and interaction with Latuda, lisinopril was discontinued. EKG today is sinus tachycardia at a rate of 127 bpm with no acute ST segment changes. Troponin is normal Elevated D-dimer with CT of the chest pending to rule out PE Echocardiogram ordered [facility] Disclaimer: The information contained in this section may have been updated after the patient was seen, as this information can be updated by other users. Medical History Anxiety Bicornuate uterus Borderline personality disorder Depression History of prediabetes Seizure disorder Family History Other Alcoholism Asthma Bleeding disorder Cancer Coronary artery disease Diabetes FHx: mental illness Heart attack Hyperlipidemia Hypertension Kidney disease Stroke Substance abuse Social History (Updated 11/12/22 @ 11:58 by Padmini Dias RN) Smoking Status: Current every day smoker alcohol intake: never current occupational status: unemployed Travel in the last 8 weeks: None Review of Systems Constitutional Constitutional: Denies headache(s) and Denies weakness ENT Ears, Nose, Mouth, and Throat: Denies headache(s) *Cardiovascular Cardiovascular: Denies chest pain and Denies dyspnea *Respiratory Respiratory: Denies dyspnea *Gastrointestinal Gastrointestinal: Denies diarrhea *Musculoskeletal Musculoskeletal: Denies numbness *Neurologic Neurologic: Denies headache(s), Denies numbness and Denies weakness Exam Data for Last 24 hours Vital signs and Labs for Last 24 Hours: Temp Pulse Resp BP Pulse Ox 97.8 F 112 H 20 125/103 H 96 11/12/22 10:36 11/12/22 12:01 11/12/22 10:36 11/12/22 12:
[2022-11-12 14:52] LABS: Microscopic, Urine URINE MICROSCOPIC (MICROSCOPIC)
[2022-11-12 14:56] LABS: Appearance,Urine CLEAR (Clear); Bilirubin,Urine Negative (Negative); Blood, Urine Negative (Negative); Color,Urine YELLOW (Yellow); Glucose,Urine (UA) Negative (Negative); Ketones,Urine Negative (Negative); Leukocyte Esterase,Urine TRACE (Negative); Nitrate,Urine Negative (Negative); PH,Urine 7.5 (5.0-8.5); Protein,Urine Negative (Negative); Urobilinogen,Urine 0.2 EU/dl (0.2)
[2022-11-12 15:22] LABS: Troponin I < 0.01 ng/ml (0.00-0.034)
[2022-11-12 15:36] LABS: Coronavirus 19, PCR Not Detected (NotDetected); Influenza A, PCR Not Detected (NotDetected); Influenza B, PCR Not Detected (NotDetected)
--- NOTE | 2022-11-12 16:39 | PC.NURSE ---
PT ASSISTED TO BR
--- NOTE | 2022-11-12 16:46 | PC.NURSE ---
per lab pt covid swab is in line today, 1 pt in front of this pts swab.
--- NOTE | 2022-11-12 17:29 | PC.NURSE ---
notified ER pt covid swab is resulted
== END 2022-11-12 17:45 | disposition home or self-care (01) ==
PROVIDERS: Emergency Provider Emergency Medicine; PCP Emergency Medicine
DX: R00.0 Tachycardia, unspecified (principal); F20.9 Schizophrenia, unspecified; F60.3 Borderline personality disorder; K80.20 Calculus of gallbladder without cholecystitis without obstruction; G40.909 Epilepsy, unspecified, not intractable, without status epilepticus; R73.03 Prediabetes; F17.210 Nicotine dependence, cigarettes, uncomplicated; Z81.1 Family history of alcohol abuse and dependence; Z81.4 Family history of other substance abuse and dependence; Z81.8 Family history of other mental and behavioral disorders; Z82.3 Family history of stroke; Z82.49 Family history of ischemic heart disease and other diseases of the circulatory system; Z82.5 Family history of asthma and other chronic lower respiratory diseases; Z20.822 Contact with and (suspected) exposure to COVID-19
CPT/HCPCS: 36415; 71045; 71275; 80053; 81001; 84436; 84443; 84479; 84484; 85025; 85378; 93005; 93306; 96360; 99285; C9803; Q9967; U0003; U0005

== ENCOUNTER → 2022-12-12 07:17 | Outpatient (CLI) | payer MEDICARE, MEDICAID, SELFPAY ==
--- NOTE | 2022-12-12 | CA_ITS ---
APPROVED REPORT Exam: Pharmacologic Technologist: Leigha Thorpe, Ht: 4 ft 11 in Wt: 186 lbs BSA: 1.79 m2 HR: 85 bpm BP: 119/78 mmHg Rhythm: sinus rhythm Medical History Medical History: HTN, Hyperlipidemia Medications: Atorvastatin,,,,, Benztropine,,,,, Acetaminophen,,,,, LoraTADINE,,,,, Mirtazapine,,,,, Loperamide,,,,, Hydroxyzine pamoate,,,,, Divaloproex,,,,, RIseridone,,,,, Cardiac Risk Factors: HTN, Hyperlipidemia, Smoking Stress Test Details Test: LEXISCAN HR Resting HR: 87 bpm Max Heart Rate (APMHR): 182 bpm Max HR Achieved: 105 bpm Target HR (85% APMHR): 155 bpm % of APMHR: 58 Recovery HR: 94 bpm BP Resting BP: 119/78 mmHg Max BP: 122/71 mmHg Recovery BP: 122.0/71.0 mmHg ECG Resting ECG: sinus rhythm Clinical Exercise duration: 04:03 min Highest Stage Achieved: Stress ECG Conclusion During lexiscan pt experinced no symptoms. <1.5mm ST segment depression Test Summary REST . . . . . . . Sitting REST 04:56 . . 87 . 119/ 78 . . Stage 1 01:00 . . 103 . . . . Stage 2 01:00 . . 101 . 106/ 73 . . Stage 3 01:00 . . 99 . 112/ 68 . . Stage 4 01:00 . . 95 . 114/ 69 . . Stage 4 01:03 . . 95 . 114/ 69 . Stop exercise at 04:03 RECOVERY 01:00 . . 99 . . . . RECOVERY 01:35 . . 96 . 122/ 71 . . Electronically signed by : Sammy Don MD 12/12/2022 15:22:44
--- NOTE | 2022-12-12 07:23 | NM_ITS ---
APPROVED REPORT Exam: Nuclear Stress Test Indication: chest pain..fatigue Patient Location: Outpatient Stress Tech: Leigha PATEL Tech:LIZ Shaw RT(R)(N) Ht: 4 ft 11 in Wt: 190 lbs Bra Size: 2x HR: 87 bpm BP: 119/75 mmHg BSA: 1.80 m2 TID: 1.41 BMI: 38.3 History: chest pain..fatigue Procedure: Patient received 0.4 mg of intravenous Lexiscan, resting heart rate 87 bpm, resting blood pressure 119/75 mmHg, with Lexiscan maximum heart rate achieved was 105 bpm which is Less than 85 % of the maximum predicted heart rate and blood pressure was 122/71 mmHg. With Lexiscan, patient denied any complaint of chest pain. Electrocardiogram Resting electrocardiogram shows sinus rhythm, with Lexiscan there is less than 1.[address] segment depression noted from the baseline EKG. The EKG portion of the Lexiscan is nondiagnostic. Cardiac Stress and Resting SPECT Images: Cardiac Stress and Resting SPECT images were obtained using technetium 99m Myoview 29.9 mCi stress and 10.37 mCi at rest. Gated SPECT analysis of segmental wall motion and calculation of the ejection fraction also done. Prone images were also obtained. Cardiac stress and rest respectively show uniform myocardial activity without segmental perfusion abnormality, computer derived ejection fraction is 68% with no regional wall motion abnormality, there is transient ischemic dilatation of the left ventricle is noted in this study which appears to be artifactual. Conclusion: 1. The EKG portion of the Lexiscan is nondiagnostic. 2. No scintigraphic evidence of reversible ischemia seen, computer derived ejection fraction is 68% with no regional wall motion abnormality, there is transient ischemic dilatation of the left ventricle is noted which appears to be artifactual. 3. Likely normal Lexiscan Myoview study. Electronically signed by : Sammy Don MD 12/12/2022 15:26:05
== END ==
PROVIDERS: PCP Emergency Medicine; Visit Provider Nurse Practitioner Family
DX: I10 Essential (primary) hypertension (principal); R07.89 Other chest pain; R94.31 Abnormal electrocardiogram [ECG] [EKG]; Z01.810 Encounter for preprocedural cardiovascular examination
CPT/HCPCS: 78452; 93017; A9502; J2785

== ENCOUNTER 2023-01-22 07:10 | Day surgery (SDC) | payer MEDICARE, MEDICAID, SELFPAY ==
--- NOTE | 2023-01-20 14:07 | SUR.PREOP ---
Spoke to Mary at [facility] regarding pt's procedure. Mary was told by this RN that the patient would need (1) responsible adult with the pt for before, during and after. She was also told that pt can not have anything to ear or drink after midnight prior to the procedure. Mary verbalized understanding and stated that the pt's mom or one of the [facility] staff members would be here on with the patient. [place] will also be faxing a medication list to the pre-operative department.
--- NOTE | 2023-01-20 14:10 | SUR.PREOP ---
Consent given over the phone by Tiffanie Parra from the [place] [facility] office. Telephone consent verified by this RN and CHATO Wheeler
[2023-01-22] VITALS (10 sets, daily range): BP systolic 118–126; BP diastolic 47–79; PULSE 94–107; RESP 12–18; TEMP 36.2–43; O2SAT 93–97; BMI 38.3
[2023-01-22 08:03] LABS: Urine Pregnancy, HCG Qual. Negative (Negative)
[2023-01-22 08:24] LABS: Basophils % 0.4 % (0.1-2.0); Eosinophils # 0.1 K/mm3 (0.0-0.4); Eosinophils % 1.8 % (0.1-12.0); Hematocrit 42.8 % (37.0-47.0); Hemoglobin 13.7 g/dL (12.2-16.2); Lymphocytes # 2.4 K/mm3 (0.7-4.5); Lymphocytes % 38.6 % (10-50); Mean Corpuscular HGB Conc 32.1 g/dL (31.8-35.4); Mean Corpuscular Hemoglobin 27.8 pg (27.0-31.2); Mean Corpuscular Volume 86.8 fl (81-99); Mean Platelet Volume 6.9 fl (7.4-10.4); Monocytes # 0.5 K/mm3 (0.1-1.0); Monocytes % 8.4 % (1.7-9.3); Neutrophils # 3.2 K/mm3 (1.8-7.8); Neutrophils % 50.9 % (37.0-80.0); Platelet Count 174 K/mm3 (142-424); Red Blood Count 4.93 M/mm3 (4.20-5.40); Red Cell Distribution Width 14.2 % (11.5-17.5); White Blood Count 6.2 K/mm3 (4.8-10.8)
[2023-01-22 08:32] LABS: Chloride 94 mmol/L (98-107); Potassium 4.1 mmoL/L (3.5-5.1); Sodium 137 mmol/L (136-145)
[2023-01-22 08:34] LABS: Blood Urea Nitrogen 6 mg/dl (7-17); Creatinine Clearance Estimated 130 mL/min (50-200); Estimated Glomerular Filt Rate 80 ml/min (>60); GFR (African American) 97 ML/MIN (>60)
[2023-01-22 08:35] LABS: Alanine Aminotransferase 20 U/L (12-78); Albumin/Globulin Ratio 1.3 (1.1-1.8); Alkaline Phosphatase 100 U/L (38-126); Anion Gap 15.1 mEq/L (5-15); Aspartate Amino Transferase 30 U/L (14-36); Bilirubin,Total 0.3 mg/dl (0.2-1.3); Calcium 9.2 mg/dl (8.4-10.2); Carbon Dioxide 32 mmol/L (22.0-30.0); Globulin 3.2 g/dL (1.3-3.2); Glucose 126 mg/dl (74-100); Total Protein,Serum 7.2 g/dl (6.3-8.2)
--- NOTE | 2023-01-22 10:04 | P.PN_ITS ---
[facility] Disclaimer: The information contained in this section may have been updated after the patient was seen, as this information can be updated by other users. Medical History Abnormal electrocardiogram [ECG] [EKG] Anxiety Atypical chest pain Bicornuate uterus Borderline personality disorder Depression Encounter for pre-operative cardiovascular clearance History of prediabetes Hyperlipidemia Hypertension Mood disorder Personality disorder Schizophrenia Seizure disorder Sleep apnea Surgical History (Updated 01/22/23 @ 08:11 by Kimberli Maria RN) S/P cystourethroscopy with dilation of urethral stricture [place] teeth extracted Family History Other Alcoholism Asthma Bleeding disorder Cancer Coronary artery disease Diabetes FHx: mental illness Heart attack Hyperlipidemia Hypertension Kidney disease Stroke Substance abuse Social History (Updated 01/22/23 @ 08:05 by Kimberli Maria RN) Smoking Status: Current every day smoker alcohol intake: never substance use type: denies use current occupational status: unemployed and other Travel in the last 8 weeks: None [facility] Anesthesia Checklist Patient Identification Patient Identification: Verbal (Name & ) Structural Data Admitted From: Long-term Nursing Facility Planned Operative Procedure/s: lap brenda Consent for Planned Operative Procedure(s) Verified: Yes NPO Status Verified Time NPO: 00:00 Additional verifications Anesthesia Reactions: No Hx Blood Transfusions: No Blood Transfusion Reaction: No Airway Assessment C-Spine Mobility Assessed: Yes TMJ Mobility Assessed: Yes Dentition: Good Dentition Neurological Assessment Level of Consciousness: Awake, Alert and Appropriate Anesthesia Plan Anesthesia Risk discussed: Yes Anesthesia Plan: Verified ASA Class: II Anesthesia Type: General
--- NOTE | 2023-01-22 10:55 | P.OP_ITS ---
Date of procedure: 01/22/23 Pre-op Diagnosis:: Chronic calculus cholecystitis Post-op Diagnosis:: Same Procedure performed:: Laparoscopic cholecystectomy Surgeon:: Cecilio Barahona MD SALES AND SERVICE CONSULTANT:: Kole Liu Anesthesia: GETA Estimated blood loss (mL): 25 Operative findings:: Distended gallbladder Multiple gallstones Moderate wall thickening Significant infundibular thickening Operative note:: After informed consent was obtained, the patient was taken to the operating room and placed in the supine position. General anesthesia was induced and the abdomen was prepped and draped in a sterile fashion. After infiltration with local anesthetic an infraumbilical incision was made. A Veress needle was placed in position. The abdomen was insufflated. A 5 mm optical trocar was placed in position. Under direct visualization, a 12 mm trocar was placed in the subxiphoid position and 2 additional 5 mm trocars were placed in the right upper quadrant. The gallbladder was elevated up and over the liver margin. The tissue around the cystic duct was carefully dissected. 3 clips were placed proximally and the duct was transected with harmonic angela. Harmonic angela were then utilized to dissect the gallbladder away from the liver margin with careful attention to the control of the cystic artery. The gallbladder was placed in a retrieval bag and removed through the subxiphoid trocar site. The right upper quadrant was thoroughly irrigated. No active bleeding or bile leak was noted. Fascia at the subxiphoid trocar site was reapproximated utilizing 0 Ethibond. The remaining trocars were removed. All wounds were irrigated and skin was closed with 4-0 Monocryl in a subcuticular fashion. Steri-Strips were applied. The patient's anesthetic agents were reversed and extubation was completed prior to transfer to recovery in stable condition. Condition: stable Disposition: PACU Specimens:: Gallbladder and contents Complications:: No immediate
--- NOTE | 2023-01-22 11:02 | P.PNANES_ITS ---
[facility] Anesthesia Record Part I Anesthesia Record I Intake, IV Amount: 1,500 Estimated blood loss (mL): 0 Urine output (mL): 0 Blood Pressure: 126/77 SaO2: 93 Pulse Rate: 98 Respiratory Rate: 12 Temperature: 97.2 F Patient is:: Awake and Stable Stable to PACU at:: 11:00
[2023-01-26 07:40] VITALS: BP 124/72; PULSE 94; TEMP 36.6
--- NOTE | 2023-01-26 07:40 | P.PNANES_ITS ---
[facility] Anesthesia Record Part II Anesthesia Record Part II Discharge Time: 11:30 Destination: Surgical Day Care (OP Surgery) PACU nurse assessment reviewed?: Yes Patient Condition:: Good Anesthesia Complications:: None Swallowing reflex intact?: Yes Cyanosis?: No Blood Pressure: 124/72 Pulse Rate: 94 Temperature: 97.9 F Mental Status: Alert & Oriented Pain level:: 0 Nausea and/or vomitting:: None Intake, IV Amount: 0
== END 2023-01-22 12:10 | disposition home or self-care (01) ==
PROVIDERS: PCP Emergency Medicine; Visit Provider Surgery
PROC: 0FT44ZZ Resection of Gallbladder, Percutaneous Endoscopic Approach (ICD-10-PCS; CPT 47562; principal; 2023-01-22 09:15)
DX: K80.12 Calculus of gallbladder with acute and chronic cholecystitis without obstruction (principal); Z72.0 Tobacco use; Z79.899 Other long term (current) drug therapy
CPT/HCPCS: 47562; 80053; 81025; 85025; 88304; 96374; J2405; J2710

== ENCOUNTER 2023-05-31 13:08 | Emergency (ER) | payer MEDICARE, MEDICAID, SELFPAY ==
[2023-05-31] VITALS (8 sets, daily range): BP systolic 93–135; BP diastolic 60–78; PULSE 66–102; RESP 17–20; TEMP 36.4–36.8; O2SAT 94–99; BMI 38.3
--- NOTE | 2023-05-31 13:07 | ECG_ITS ---
APPROVED REPORT Exam: Resting ECG HR:93 bpm ECG Measurements Heart Rate 93 AXES KS 151 P 57 QRSd 88 QRS 57 QT 290 T 12 QTc 341 Conclusion SINUS RHYTHM LOW QRS VOLTAGE IN PRECORDIAL LEADS [QRS DEFLECTION < 1.0 mV IN CHEST LEADS] NONSPECIFIC T-WAVE ABNORMALITY BORDERLINE ECG UNCONFIRMED REPORT Electronically signed by : Steve Clark MD 06/02/2023 17:19:04
--- NOTE | 2023-05-31 13:19 | XR_ITS ---
PROCEDURE INFORMATION: Exam: XR Chest Exam date and time: 05/31/2023 1:22 PM Age: 37 years old Clinical indication: Pain; Chest pressure; Additional info: Chest pain TECHNIQUE: Imaging protocol: Radiologic exam of the chest. Views: 1 view. COMPARISON: CR XR CHEST PORTABLE 11/12/2022 11:28 AM FINDINGS: Lungs: Lung volumes are somewhat decreased which may be due to body habitus. No infiltrates. Pleural spaces: Unremarkable. No pleural effusion. No pneumothorax. Heart/Mediastinum: Unremarkable. No cardiomegaly. Bones/joints: Unremarkable. IMPRESSION: Decreased lung volumes otherwise negative chest.
--- NOTE | 2023-05-31 13:23 | PC.NURSE ---
Dr. Das at BS for pt eval
--- NOTE | 2023-05-31 13:24 | PC.NURSE ---
RAD at for CXR
--- NOTE | 2023-05-31 13:24 | PC.NURSE ---
DR TUCKER AT BEDSIDE
--- NOTE | 2023-05-31 13:26 | HMH.EDGENADL ---
Discharge Plan Disposition Patient Disposition: Home, Self-Care Chief Complaint: Chest Pain Prescriptions Prescriptions: No Action acetaminophen 500 mg tablet 500 mg PO TID PRN (Reason: Pain) hydroxyzine pamoate 50 mg capsule 50 mg PO DIRECTED PRN (Reason: Anxiety) loperamide 2 mg capsule 2 mg PO Q3HWA atorvastatin 10 mg tablet 10 mg PO HS divalproex 500 mg tablet,delayed release (DR/EC) 1,000 mg PO HS divalproex 500 mg tablet,delayed release (DR/EC) 500 mg PO BID bisoprolol fumarate 5 mg tablet 5 mg PO DAILY benztropine 1 mg tablet 1 mg PO BID mirtazapine 15 mg tablet 15 mg PO HS fluticasone propionate 50 mcg/actuation spray,suspension 2 spray intranasal DAILY Rx Instructions: administer into each nostril loratadine 10 mg tablet 10 mg PO DAILY risperidone 2 mg tablet 4 mg PO BID Debrox 6.5 % drops 5 drp otic (ear) DAILY 4 Days Qty: 15 0RF ondansetron HCl 4 mg Tablet 4 mg PO Q8H pantoprazole 40 mg tablet,delayed release (DR/EC) See Rx Instructions .ROUTE .COMPLEX Rx Instructions: GIVE 1 TABLET BY MOUTH ONCE DAILY medroxyprogesterone 150 mg/mL suspension See Rx Instructions .ROUTE .COMPLEX Rx Instructions: INJECT 1ML (150MG) I.M. 150MG EVERY 3 MONTHS Referrals Follow up/Referrals: Jarett Stephens MD [Primary Care Provider] - See instructions Activity Restrictions/Add. Instructions Additional Instructions/Restrictions: Call your family doctor to establish care for this visit to the emergency department and schedule follow-up within 48 hours to ensure improvement. If you have any worsening of your condition or any other concerning signs or symptoms, return to the emergency department or your primary care doctor for further evaluation. Take Tylenol 1000 mg every 6 hours (4 times daily) and ibuprofen 400 mg every 6 hours (4 times daily) as needed with food and water to prevent GI upset and kidney damage. Clinical Impressions Clinical Impression: Chest pain Discharge ED Provider: Carlos Campuzano General Adult HPI <Galdino Das MD - Last Filed: 05/31/23 16:09> General Chief complaint: Chest Pain Stated complaint: chest pain Time Seen by Provider: 05/31/23 13:20 Mode of Arrival: EMS Source of Information: Patient Limitations: No Limitations Description of Symptoms (Recalled from ER Triage Doc. by RN): PT C/O MIDSTERNAL AND LEFT SIDED CHEST PAIN THAT STARTED ABOUT 35 MINUTES LOAN REPRESENTATIVE. PT REPORTS SIMIALR EPIOSODE R/T ANXIETY. PT DENIES SHORTNESS OF BREATH. REPORTS NAUSEA History of Present Illness HPI narrative: Patient is a 37-year-old female past medical history of schizophrenia, sleep apnea who presents emergency department for evaluation of chest pain. Onset was acute, approximate 1 hour prior to arrival. Patient ate some spicy Cheetos and felt substernal and left sternal border chest pain causing her to be concerned present here for continued evaluation. It does not radiate. No other acute complaints at this time. She states she does have a history of fast heart rate for which she takes beta-pratik and follows routinely with Dr. Ojeda. No shortness of breath or cough. Related Data Home Medications Medication Instructions Recorded Confirmed acetaminophen 500 mg tablet 500 mg PO TID PRN Pain 11/12/22 05/08/23 hydroxyzine pamoate 50 mg capsule 50 mg PO DIRECTED PRN Anxiety 11/12/22 05/08/23 loperamide 2 mg capsule 2 mg PO Q3HWA dirrhea 11/12/22 05/08/23 atorvastatin 10 mg tablet 10 mg PO HS Cholesterol 11/26/22 05/08/23 benztropine 1 mg tablet 1 mg PO BID parkinson disease 11/26/22 05/08/23 bisoprolol fumarate 5 mg tablet 5 mg PO DAILY blood pressure 11/26/22 05/08/23 divalproex 500 mg tablet,delayed 1,000 mg PO HS seizures 11/26/22 05/08/23 release divalproex 500 mg tablet,delayed 500 mg PO BID seizures 11/26/22 05/08/23 release fluticasone propionate 50 2 spray intr
[2023-05-31 13:38] LABS: Basophils % 0.5 % (0.1-2.0); Eosinophils # 0.1 K/mm3 (0.0-0.4); Eosinophils % 1.3 % (0.1-12.0); Hematocrit 42.5 % (37.0-47.0); Hemoglobin 13.6 g/dL (12.2-16.2); Lymphocytes # 1.8 K/mm3 (0.7-4.5); Lymphocytes % 25.4 % (10-50); Mean Corpuscular Volume 84.4 fl (81-99); Mean Platelet Volume 7.7 fl (7.4-10.4); Monocytes # 0.6 K/mm3 (0.1-1.0); Neutrophils # 4.5 K/mm3 (1.8-7.8); Neutrophils % 64.8 % (37.0-80.0); Platelet Count 157 K/mm3 (142-424); Red Blood Count 5.04 M/mm3 (4.20-5.40); Red Cell Distribution Width 14.6 % (11.5-17.5); White Blood Count 6.9 K/mm3 (4.8-10.8)
[2023-05-31 13:40] LABS: Chloride 100 mmol/L (98-107); Sodium 135 mmol/L (136-145)
[2023-05-31 13:43] LABS: Alanine Aminotransferase 23 U/L (12-78); Albumin Level 3.4 g/dl (3.5-5.0); Albumin/Globulin Ratio 1.1 (1.1-1.8); Alkaline Phosphatase 107 U/L (38-126); Aspartate Amino Transferase 41 U/L (14-36); Bilirubin,Total 0.4 mg/dl (0.2-1.3); Blood Urea Nitrogen 8 mg/dl (7-17); Carbon Dioxide 29 mmol/L (22.0-30.0); Creatinine Clearance Estimated 148 mL/min (50-200); Estimated Glomerular Filt Rate 94 ml/min (>60); GFR (African American) 113 ML/MIN (>60); Total Protein,Serum 6.4 g/dl (6.3-8.2)
[2023-05-31 13:44] LABS: Calcium 8.9 mg/dl (8.4-10.2); Glucose 112 mg/dl (74-100)
[2023-05-31 13:57] LABS: Troponin I < 0.01 ng/ml (0.00-0.034)
--- NOTE | 2023-05-31 14:36 | PC.NURSE ---
rounded on pt. advised the medicine helped a little .
--- NOTE | 2023-05-31 14:51 | PC.NURSE ---
Pt called me into her room and advised her stomach hurt because she was hungry MD made aware.
--- NOTE | 2023-05-31 14:53 | PC.NURSE ---
contacted dietary, ordered tray for pt.
--- NOTE | 2023-05-31 15:08 | PC.NURSE ---
Pt provided with lunch tray
--- NOTE | 2023-05-31 16:23 | PC.NURSE ---
Called lab to confirm they had received pt second trop
[2023-05-31 16:47] LABS: Troponin I < 0.01 ng/ml (0.00-0.034)
--- NOTE | 2023-05-31 16:51 | PC.NURSE ---
Dr. Campuzano notified that pt troponin was resulted
--- NOTE | 2023-05-31 16:57 | PC.NURSE ---
Spoke with Padmini from [employer] advised she would call her crop grain or livestock farm manager and have someone come pecan picker the patient
--- NOTE | 2023-05-31 17:15 | PC.NURSE ---
Called [employer] to check the status of a ride for pt. Advised the assistant clinical nurse manager was working on it.
--- NOTE | 2023-05-31 17:37 | PC.NURSE ---
rounded on pt, pt sitting up in chair drinking water. Pt states no needs at this time, waiting on her ride.
--- NOTE | 2023-05-31 17:59 | PC.NURSE ---
Pt escorted to Outpt testing room in ER to await her ride d/t bed need & availability. Denies any needs at this time.
--- NOTE | 2023-05-31 18:28 | PC.NURSE ---
Attempted to call [facility] to check status of collecting pt. No answer. Called Director Of Campus Recreation directly, Shonda, and asked regarding transportation. Shonda states that [facility] staff at this time have no capability of getting pt until 1900 tonight. Pt was updated on this.
== END 2023-05-31 19:18 | disposition home or self-care (01) ==
PROVIDERS: Emergency Medicine; Emergency Provider Emergency Medicine; PCP Emergency Medicine
DX: R07.89 Other chest pain (principal); F41.9 Anxiety disorder, unspecified; F20.9 Schizophrenia, unspecified; G47.30 Sleep apnea, unspecified; F60.3 Borderline personality disorder; E78.5 Hyperlipidemia, unspecified; I10 Essential (primary) hypertension; G40.909 Epilepsy, unspecified, not intractable, without status epilepticus; F17.200 Nicotine dependence, unspecified, uncomplicated
CPT/HCPCS: 71045; 80053; 84484; 85025; 93005; 99285

== ENCOUNTER → 2024-02-22 19:56 | Outpatient (CLI) | payer MEDICARE, MEDICAID, SELFPAY | LOC: SL 20:06 | PROVIDERS: PCP Nurse Practitioner Acute Care; Visit Provider Specialist | DX: G47.33 Obstructive sleep apnea (adult) (pediatric) (principal); G47.36 Sleep related hypoventilation in conditions classified elsewhere; I10 Essential (primary) hypertension; Z72.0 Tobacco use | CPT/HCPCS: 95810 ==

== ENCOUNTER 2024-05-25 12:13 | Emergency (ER) | payer MEDICARE, MEDICAID, SELFPAY ==
[2024-05-25] VITALS (7 sets, daily range): BP systolic 106–127; BP diastolic 60–88; PULSE 83–97; RESP 16–18; TEMP 36.8; O2SAT 91–100; BMI 39.7
--- NOTE | 2024-05-25 12:41 | ECG_ITS ---
APPROVED REPORT Exam: Resting ECG HR:89 bpm ECG Measurements Heart Rate 89 AXES ME 154 P 61 QRSd 81 QRS 61 QT 369 T 31 QTc 416 Conclusion SINUS RHYTHM POSSIBLE LEFT ATRIAL ENLARGEMENT [-0.1mV P-WAVE IN V1/V2] BORDERLINE ECG UNCONFIRMED REPORT Electronically signed by : EASTON MEJÍA, 05/25/2024 15:42:19
--- NOTE | 2024-05-25 13:07 | ED_ITS ---
Discharge Plan Disposition Patient Disposition: Home, Self-Care Condition: Good Prescriptions Prescriptions: No Action acetaminophen 500 mg tablet 500 mg PO TID PRN (Reason: Pain) hydroxyzine pamoate 50 mg capsule 50 mg PO DIRECTED PRN (Reason: Anxiety) loperamide 2 mg capsule 2 mg PO Q3HWA atorvastatin 10 mg tablet 10 mg PO HS divalproex 500 mg tablet,delayed release (DR/EC) 1,000 mg PO HS divalproex 500 mg tablet,delayed release (DR/EC) 500 mg PO BID bisoprolol fumarate 5 mg tablet 5 mg PO DAILY benztropine 1 mg tablet 1 mg PO BID mirtazapine 15 mg tablet 15 mg PO HS fluticasone propionate 50 mcg/actuation spray,suspension 2 spray intranasal DAILY Rx Instructions: administer into each nostril loratadine 10 mg tablet 10 mg PO DAILY risperidone 2 mg tablet 4 mg PO BID Debrox 6.5 % drops 5 drp otic (ear) DAILY 4 Days Qty: 15 0RF ondansetron HCl 4 mg Tablet 4 mg PO Q8H pantoprazole 40 mg tablet,delayed release (DR/EC) See Rx Instructions .ROUTE .COMPLEX Rx Instructions: GIVE 1 TABLET BY MOUTH ONCE DAILY medroxyprogesterone 150 mg/mL suspension See Rx Instructions .ROUTE .COMPLEX Rx Instructions: INJECT 1ML (150MG) I.M. 150MG EVERY 3 MONTHS Referrals Follow up/Referrals: Alcides Guevara APRN [Primary Care Provider] - See instructions Activity Restrictions/Add. Instructions Additional Instructions/Restrictions: You have been evaluated in the ED for your complaints. You may follow-up with your PCP in the next 3 to 5 days. Please return to ED for any new or worsening symptoms. Please continue to take your seizure medications as prescribed. I recommend that you do not miss any doses as this could precipitate seizures. Clinical Impressions Clinical Impression: Seizure Print Language Print Language: Wolof Discharge ED Provider: Rafi Guthrie Adult [facility] General Chief complaint: Extremity Problem,Nontraumatic Stated complaint: seizure Time Seen by Provider: 05/25/24 12:48 Mode of Arrival: EMS Source of Information: Patient, EMS and Medical Record Limitations: No Limitations Description of Symptoms (Recalled from ER Triage Doc. by RN): per [facility] staff pt was sitting at the table when she started having tremors. pt reports that her right hand has tremors and has since she was 15, pt reports that she recalls not being able to talk for 10-15minutes up until ems arrived. History of Present Illness HPI narrative: 38-year-old female with past medical history significant for CVA, DM2, HLD, schizophrenia, anxiety, depression, HTN, GERD, presents today for evaluation concerning possible seizure at her care facility. Patient states that she became upset because she could not find a cigarette and due to distress began to have a seizure where she stared into space. She states that she remembers the whole event however she was not able to talk for 10 to 15 minutes. She does report right arm tremors but states that these are normal for her at baseline. She does report missing multiple doses of her medication this week secondary to oversleeping. Also endorses dysuria. She denies any nausea, vomiting with fevers, chills, chest pain, shortness of breath, abdominal pain or any other associated symptoms at this time. Related Data Home Medications ?Medication ?Instructions ?Recorded ?Confirmed acetaminophen 500 mg tablet 500 mg PO TID PRN Pain 11/12/22 04/15/24 hydroxyzine pamoate 50 mg capsule 50 mg PO DIRECTED PRN Anxiety 11/12/22 04/15/24 loperamide 2 mg capsule 2 mg PO Q3HWA dirrhea 11/12/22 04/15/24 atorvastatin 10 mg tablet 10 mg PO HS Cholesterol 11/26/22 04/15/24 benztropine 1 mg tablet 1 mg PO BID parkinson disease 11/26/22 04/15/24 bisoprolol fumarate 5 mg tablet 5 mg PO DAILY blood pressure 11/26/22 04/15/24 divalproex 500 mg tablet,delayed 1,000 mg PO HS seizures 11/26/22 04/15/24 release divalproex 500 mg tablet,delayed 500 mg PO BID seizures 11/26/22 04/15/24 release fluticasone propionate 50 2 spray intranasal DAILY allergies 11/26/22 04/15/24 mcg/actuation nasal spray,suspension loratadine 10 mg tablet 10 mg PO DAILY allergies 11/26/22 04/15/24 mirtazapine 15 mg tablet 15 mg PO HS Depression 11/26/22 04/15/24 medroxyprogesterone 150 mg/mL See Rx Instructions .Route 01/20/23 04/15/24 intramuscular suspension .COMPLEX Supplement ondansetron HCl 4 mg tablet 4 mg PO Q8H Nausea & vomiting 01/20/23 04/15/24 pantoprazole 40 mg tablet,delayed See Rx Instructions .Route 01/20/23 04/15/24 release .COMPLEX gerd risperidone 2 mg tablet 4 mg PO BID mood 05/08/23 04/15/24 Previous Rx's ?Medication ?Instructions ?Recorded carbamide peroxide 6.5 % ear drops 5 drp otic (ear) DAILY 4 days #15 04/10/23 (Debrox) mL Allergies Allergy/AdvReac Type Severity Reaction Status Date / Time latex Allergy Verified 04/14/24 16:12 guaifenesin [From Mucinex] AdvReac Verified 04/14/24 16:12 pseudoephedrine AdvReac Verified 04/14/24 16:12 [From Sudafed] PFSH [facility] Disclaimer: The information contained in this section may have been updated after the patient was seen, as this information can be updated by other users. Medical History History of stroke History of cancer Diabetes Hyperlipidemia Atypical chest pain Encounter for pre-operative cardiovascular clearance Abnormal electrocardiogram [ECG] [EKG] Personality disorder Mood disorder Sleep apnea Chronic cholecystitis with calculus Bicornuate uterus Schizophrenia History of prediabetes Borderline personality disorder Seizure disorder Depression Anxiety Hypertension Surgical History History of laparoscopic cholecystectomy S/P cystourethroscopy with dilation of urethral stricture [place] teeth extracted Family History Other Alcoholism Asthma Bleeding disorder Cancer Coronary artery disease Depression Diabetes FHx: mental illness Heart attack Hyperlipidemia Hypertension Kidney disease SAMMY (obstructive sleep apnea) Obesity (BMI 30.0-34.9) Stroke Substance abuse Social History Smoking Status: Current every day smoker alcohol intake: never substance use type: denies use current occupational status: unemployed and other Travel in the last 8 weeks: None household members: other details: At [place] housing: assisted living facility ROS Obtained: Yes All systems reviewed & no additional complaints except as documented Physical Exam General General appearance: alert and in no apparent distress Head Head exam: atraumatic and normocephalic Eye Eye exam: Present normal appearance, PERRL and EOMI ENT ENT exam: Present normal oropharynx and mucous membranes moist Neck Neck exam: Present full ROM; Absent meningismus Respiratory Respiratory exam: Absent respiratory distress, wheezes, stridor or accessory muscle use Cardiovascular Cardiovascular exam: Present normal rhythm Abdominal Exam Abdominal exam: Present soft; Absent distention, tenderness, guarding, rebound or rigidity Neurological Exam Neurological exam: Present alert, oriented X3, CN II-XII intact and other (Right upper extremity tremor at baseline); Absent motor sensory deficit Psychiatric Psychiatric exam: Present normal affect and normal mood Skin Skin exam: Present warm and dry Medical Decision Making Medical Records Medical records reviewed: Yes I reviewed the patient's medical records. Esequiel Inquiry Pt receiving controlled substance: No Esequiel was queried for this patient: No Vital Signs: 05/25/24 12:13 05/25/24 12:30 05/25/24 13:01 Temperature 98.2 F Temperature Source Oral Pulse Rate 93 H 95 H Pulse Rate [Left Radial] 97 H Respiratory Rate 18 Blood Pressure 115/70 124/88 Blood Pressure [Right Arm] 106/60 L Blood Pressure Mean [Right Arm] 75 Blood Pressure Source [Right Arm] Automatic Cuff Blood Pressure Position [Right Arm] Sitting 02 Sat by Pulse Oximetry 93 L 91 L 95 Oxygen Delivery Method Room Air 05/25/24 13:30 05/25/24 13:47 05/25/24 14:00 Temperature Temperature Source Pulse Rate 95 H 88 90 Pulse Rate [Left Radial] Respiratory Rate Blood Pressure 115/74 127/85 117/82 Blood Pressure [Right Arm] Blood Pressure Mean [Right Arm] Blood Pressure Source [Right Arm] Blood Pressure Position [Right Arm] 02 Sat by Pulse Oximetry 100 98 98 Oxygen Delivery Method Lab Data Lab Results 05/25/24 12:23: WBC 8.2, RBC 4.82, Hgb 14.5, Hct 45.3, MCV 93.9, MCH 30.0, MCHC 32.0, RDW 14.6, Plt Count 169, MPV 8.3, Neut % (Auto) 69.7, Lymph % (Auto) 21.5, [place] % (Auto) 7.7, Eos % (Auto) 0.4, Baso % (Auto) 0.7, Neut # (Auto) 5.7, Lymph # (Auto) 1.8, [place] # (Auto) 0.6, Eos # (Auto) 0.0, Baso # (Auto) 0.1, Sodium 134 L, Potassium 4.4, Chloride 101, Carbon Dioxide 31 H, Anion Gap 6.4, BUN 7, Creatinine 0.60, Estimated Creat Clear 178, Estimated GFR 111, Est GFR ( Amer) 135, Glucose 217 H, Lactate 2.6 H, Calcium 9.2, Total Bilirubin 0.5, AST 52 H, ALT 27, Alkaline Phosphatase 77, Total Protein 6.9, Albumin 3.6, Globulin 3.3 H, Albumin/Globulin Ratio 1.1 05/25/24 14:35: Urine Color Yellow, Urine Appearance Clear, Urine pH 6.0, Ur Specific [place] 1.010, Urine Protein Negative, Urine Glucose (UA) Negative, Urine Ketones Trace, Urine Blood Negative, Urine Nitrate Negative, Urine Bilirubin Negative, Urine Urobilinogen 0.2, Ur Leukocyte Esterase Negative, Urine RBC Occasional, Urine WBC Occasional, Ur Squamous Epith Cells 20-50, Urine Bacteria 1+ 05/25/24 12:23 05/25/24 12:23 Orders (Tests/Meds): ED MEDICATIONS Generic Name Dose Route Start Last Admin Trade Name Freq PRN Reason Stop Dose Admin Lactated Ringer's 1,000 mls @ 999 mls/hr 05/25/24 14:51 Lactated Ringer's 1000 Ml Bag IV 05/25/24 15:51 .Q1H1M ONE Sodium Chloride 10 ml 05/25/24 12:27 Sodium Chloride 0.9% 10ml Flush Syringe IV 06/24/24 12:26 NEEDED PRN Maintain IV Site Discontinued Medications Generic Name Dose Route Start Last Admin Trade Name Freq PRN Reason Stop Dose Admin Levetiracetam 1,000 mg/ Sodium 110 mls @ 220 mls/hr 05/25/24 14:51 05/25/24 15:02 Chloride IV 05/25/24 14:52 220 mls/hr ONCE ONE Administration ORDERS Category Date Time Status CBC w/Auto Diff [Complete Blood Count Auto Diff] Stat Lab 05/25/24 12:23 Completed CMP [Comprehensive Metabolic Panel] Stat Lab 05/25/24 12:23 Completed Lactic Acid Stat Lab 05/25/24 12:23 Completed UA [Urinalysis and Microscopic] Stat Lab 05/25/24 14:35 Completed Medical Decision Narrative: 38-year-old female with past medical history significant for CVA, DM2, HLD, schizophrenia, anxiety, depression, HTN, GERD, presents today for evaluation concerning possible seizure at her care facility. Patient states that she became upset because she could not find a cigarette and due to distress began to have a seizure where she stared into space. She states that she remembers the whole event however she was not able to talk for 10 to 15 minutes. She does report right arm tremors but states that these are normal for her at baseline. She does report missing multiple doses of her medication this week secondary to oversleeping. Also endorses dysuria. On assessment she was hemodynamically stable and in no acute distress. Afebrile. Chest laceration bilateral. Abdomen soft nondistended nontender palpation. She did have a right upper extremity tremor which she reported has been her baseline for several years. Neurological exam was otherwise nonfocal. Differential diagnoses include but limited to breakthrough seizure, electrolyte disturbance, dysrhythmia, UTI, others EKG was personally interpreted by me and was remarkable for normal sinus rhythm with a rate of 89 bpm. No ischemic changes. QTc of 416. Patient's lab workup today has been reassuring. WBC of 8.2. No significant electrolyte derangements. She does have a lactate level of 2.6. I have ordered for IV fluids. Also gave patient a Keppra load while in the ED to prevent further seizures as she did note that she has missed multiple doses. Patient has been monitored for multiple hours while in the ED and has not had any seizure activity. Urinalysis did not show signs of UTI. It is my suspicion that patient's seizures may be due to to missed medication. Discussed with patient ED work-up and results and current plan to discharge. She will continue with her psychiatrist who prescribes her seizure medications. I also recommended patient find a neurologist for further assistance as needed. Provided with return to ED precautions and instructions concerning PCP follow- up. Patient verbalized understanding and agreement with plan. Subsequently discharged hemodynamically stable and in no acute distress. Critical Care Critical Care Time Critical Care Time: No
[2024-05-25 13:15] LABS: Albumin Level 3.6 g/dl (3.5-5.0); Chloride 101 mmol/L (98-107); Potassium 4.4 mmoL/L (3.5-5.1); Sodium 134 mmol/L (136-145)
[2024-05-25 13:18] LABS: Alanine Aminotransferase 27 U/L (12-78); Albumin/Globulin Ratio 1.1 (1.1-1.8); Alkaline Phosphatase 77 U/L (38-126); Anion Gap 6.4 mEq/L (5-15); Aspartate Amino Transferase 52 U/L (14-36); Bilirubin,Total 0.5 mg/dl (0.2-1.3); Blood Urea Nitrogen 7 mg/dl (7-17); Calcium 9.2 mg/dl (8.4-10.2); Carbon Dioxide 31 mmol/L (22.0-30.0); Creatinine Clearance Estimated 178 mL/min (50-200); Estimated Glomerular Filt Rate 111 ml/min (>60); GFR (African American) 135 ML/MIN (>60); Globulin 3.3 g/dL (1.3-3.2); Glucose 217 mg/dl (74-100); Total Protein,Serum 6.9 g/dl (6.3-8.2)
[2024-05-25 13:20] LABS: Basophils # 0.1 K/mm3 (0-0.2); Basophils % 0.7 % (0.1-2.0); Eosinophils % 0.4 % (0.1-12.0); Hematocrit 45.3 % (37.0-47.0); Hemoglobin 14.5 g/dL (12.2-16.2); Lymphocytes # 1.8 K/mm3 (0.7-4.5); Lymphocytes % 21.5 % (10-50); Mean Corpuscular Volume 93.9 fl (81-99); Mean Platelet Volume 8.3 fl (7.4-10.4); Monocytes # 0.6 K/mm3 (0.1-1.0); Monocytes % 7.7 % (1.7-9.3); Neutrophils # 5.7 K/mm3 (1.8-7.8); Neutrophils % 69.7 % (37.0-80.0); Platelet Count 169 K/mm3 (142-424); Red Blood Count 4.82 M/mm3 (4.20-5.40); Red Cell Distribution Width 14.6 % (11.5-17.5); White Blood Count 8.2 K/mm3 (4.8-10.8)
[2024-05-25 13:25] LABS: Lactic Acid 2.6 mmol/L (0.7-2.1)
[2024-05-25 15:00] LABS: Microscopic, Urine URINE MICROSCOPIC (MICROSCOPIC)
[2024-05-25] MEDS: levETIRAcetam 1,000 MG in 0.9 % SODIUM CHLORIDE 100 ML 220 MG IV (15:02)
[2024-05-25 15:06] LABS: Appearance,Urine CLEAR (Clear); Bilirubin,Urine Negative (Negative); Blood, Urine Negative (Negative); Color,Urine YELLOW (Yellow); Glucose,Urine (UA) Negative (Negative); Ketones,Urine TRACE (Negative); Leukocyte Esterase,Urine Negative (Negative); Nitrate,Urine Negative (Negative); Protein,Urine Negative (Negative); Urobilinogen,Urine 0.2 EU/dl (0.2)
[2024-05-25 15:13] LABS: Bacteria,Urine 1+ /lpf; RBC,Urine Occasional #/hpf (0-3); Squamous Epithelial Cell,Urine 20-50 #/hpf (0-5); WBC,Urine Occasional #/hpf (0-3)
[2024-05-25] MEDS: LACTATED RINGERS 1000ML 1,000 ML 999 ML IV (15:28)
[2024-05-25 17:10] LABS: Reflex Lactic Add Lactic Reflex
== END 2024-05-25 15:37 | disposition home or self-care (01) ==
PROVIDERS: Emergency Provider Emergency Medicine; PCP Nurse Practitioner Acute Care
DX: G40.919 Epilepsy, unspecified, intractable, without status epilepticus (principal); R30.0 Dysuria; E11.9 Type 2 diabetes mellitus without complications; I10 Essential (primary) hypertension; E78.5 Hyperlipidemia, unspecified; K21.9 Gastro-esophageal reflux disease without esophagitis; Z86.73 Personal history of transient ischemic attack (TIA), and cerebral infarction without residual deficits; F17.200 Nicotine dependence, unspecified, uncomplicated
CPT/HCPCS: 80053; 81001; 83605; 85025; 93005; 96361; 96374; 99285; J1953; J7120

== ENCOUNTER → 2024-07-06 20:08 | Outpatient (CLI) | payer MEDICARE, MEDICAID, SELFPAY | PROVIDERS: PCP Nurse Practitioner Acute Care; Visit Provider Specialist | DX: G47.33 Obstructive sleep apnea (adult) (pediatric) (principal); R00.0 Tachycardia, unspecified | CPT/HCPCS: 95811 ==

== ENCOUNTER 2024-07-25 02:15 | Emergency (ER) | payer MEDICARE, MEDICAID, SELFPAY ==
--- NOTE | 2024-07-25 02:17 | ED_ITS ---
Discharge Plan Disposition Patient Disposition: Home, Self-Care Condition: Good Chief Complaint: Anxiety Prescriptions Prescriptions: No Action acetaminophen 500 mg tablet 500 mg PO TID PRN (Reason: Pain) hydroxyzine pamoate 50 mg capsule 50 mg PO DIRECTED PRN (Reason: Anxiety) loperamide 2 mg capsule 2 mg PO Q3HWA atorvastatin 10 mg tablet 10 mg PO HS divalproex 500 mg tablet,delayed release (DR/EC) 1,000 mg PO HS divalproex 500 mg tablet,delayed release (DR/EC) 500 mg PO BID bisoprolol fumarate 5 mg tablet 5 mg PO DAILY benztropine 1 mg tablet 1 mg PO BID mirtazapine 15 mg tablet 15 mg PO HS fluticasone propionate 50 mcg/actuation spray,suspension 2 spray intranasal DAILY Rx Instructions: administer into each nostril loratadine 10 mg tablet 10 mg PO DAILY risperidone 2 mg tablet 4 mg PO BID Debrox 6.5 % drops 5 drp otic (ear) DAILY 4 Days Qty: 15 0RF ondansetron HCl 4 mg Tablet 4 mg PO Q8H pantoprazole 40 mg tablet,delayed release (DR/EC) See Rx Instructions .ROUTE .COMPLEX Rx Instructions: GIVE 1 TABLET BY MOUTH ONCE DAILY medroxyprogesterone 150 mg/mL suspension See Rx Instructions .ROUTE .COMPLEX Rx Instructions: INJECT 1ML (150MG) I.M. 150MG EVERY 3 MONTHS Referrals Follow up/Referrals: Damaris Sutton APRN [Nurse Practitioner] - See instructions (hx depression, anxiety, not well controlled) Activity Restrictions/Add. Instructions Additional Instructions/Restrictions: You were evaluated in the ER and are appropriate for discharge at this time. Continue taking your home medications as prescribed. Take your Vistaril as needed. You have been referred to Damaris Sutton with behavioral health for outpatient follow-up, contact her for an appointment for further evaluation and medication management. Return to the ER with new, worsening, or otherwise concerning symptoms. Clinical Impressions Clinical Impression: Anxiety Print Language Print Language: Uzbek Discharge ED Provider: Jourdan Allen Adult HPI General Stated complaint: panic attack Time Seen by Provider: 07/25/24 02:17 History of Present Illness HPI narrative: 38-year-old female with history of seizure, mood disorder, anxiety, depression presents to the ER for complaints of anxiety and depression. Patient states she misses her brother since they have not visited her recently. She states she gets anxious and has racing thoughts. She states she was mad at God for breaking promises to her. She denies suicidal or homicidal ideation. She states she did take her as needed Vistaril yesterday. She states she has not missed any doses of her medications in the last few days, but early last week she did miss some of her morning medications because she slept in. Patient reports no headache, dizziness, nausea, vomiting, numbness, tingling, weakness, chest pain, difficulty breathing, cough, congestion, sore throat, runny nose, dysuria, hematuria, or any other associated symptoms. She states she does not drink alcohol, she does smoke cigarettes, she does not use marijuana or any other drugs. Patient denies hallucinations. Related Data Home Medications ?Medication ?Instructions ?Recorded ?Confirmed acetaminophen 500 mg tablet 500 mg PO TID PRN Pain 11/12/22 04/15/24 hydroxyzine pamoate 50 mg capsule 50 mg PO DIRECTED PRN Anxiety 11/12/22 04/15/24 loperamide 2 mg capsule 2 mg PO Q3HWA dirrhea 11/12/22 04/15/24 atorvastatin 10 mg tablet 10 mg PO HS Cholesterol 11/26/22 04/15/24 benztropine 1 mg tablet 1 mg PO BID parkinson disease 11/26/22 04/15/24 bisoprolol fumarate 5 mg tablet 5 mg PO DAILY blood pressure 11/26/22 04/15/24 divalproex 500 mg tablet,delayed 1,000 mg PO HS seizures 11/26/22 04/15/24 release divalproex 500 mg tablet,delayed 500 mg PO BID seizures 11/26/22 04/15/24 release fluticasone propionate 50 2 spray intranasal DAILY allergies 11/26/22 04/15/24 mcg/actuation nasal spray,suspension loratadine 10 mg tablet 10 mg PO DAILY allergies 11/26/22 04/15/24 mirtazapine 15 mg tablet 15 mg PO HS Depression 11/26/22 04/15/24 medroxyprogesterone 150 mg/mL See Rx Instructions .Route 01/20/23 04/15/24 intramuscular suspension .COMPLEX Supplement ondansetron HCl 4 mg tablet 4 mg PO Q8H Nausea & vomiting 01/20/23 04/15/24 pantoprazole 40 mg tablet,delayed See Rx Instructions .Route 01/20/23 04/15/24 release .COMPLEX gerd risperidone 2 mg tablet 4 mg PO BID mood 05/08/23 04/15/24 Previous Rx's ?Medication ?Instructions ?Recorded carbamide peroxide 6.5 % ear drops 5 drp otic (ear) DAILY 4 days #15 04/10/23 (Debrox) mL Allergies Allergy/AdvReac Type Severity Reaction Status Date / Time latex Allergy Verified 04/14/24 16:12 guaifenesin [From Mucinex] AdvReac Verified 04/14/24 16:12 pseudoephedrine AdvReac Verified 04/14/24 16:12 [From Sudafed] PFSH [facility] Disclaimer: The information contained in this section may have been updated after the patient was seen, as this information can be updated by other users. Medical History History of stroke History of cancer Diabetes Hyperlipidemia Atypical chest pain Encounter for pre-operative cardiovascular clearance Abnormal electrocardiogram [ECG] [EKG] Personality disorder Mood disorder Sleep apnea Chronic cholecystitis with calculus Bicornuate uterus Schizophrenia History of prediabetes Borderline personality disorder Seizure disorder Depression Anxiety Hypertension Surgical History History of laparoscopic cholecystectomy S/P cystourethroscopy with dilation of urethral stricture [place] teeth extracted Family History Other Alcoholism Asthma Bleeding disorder Cancer Coronary artery disease Depression Diabetes FHx: mental illness Heart attack Hyperlipidemia Hypertension Kidney disease SAMMY (obstructive sleep apnea) Obesity (BMI 30.0-34.9) Stroke Substance abuse Social History Smoking Status: Current every day smoker alcohol intake: never substance use type: denies use current occupational status: unemployed and other Travel in the last 8 weeks: None household members: other details: At [place] housing: assisted living facility Other Medical History Have you received the Flu Vaccine for this season: No Have you received the Pneumonia Vaccine: No ROS Obtained: Yes Systems reviewed as appropriate & no additional complaints except as documented ROS per HPI Physical Exam General General appearance: alert, in no apparent distress and obese Head Head exam: atraumatic and normocephalic Eye Eye exam: Present PERRL and EOMI ENT ENT exam: Present mucous membranes moist Neck Neck exam: Present normal inspection and full ROM Chest Chest inspection: Present symmetric chest wall rise Respiratory Respiratory exam: Present normal lung sounds bilaterally; Absent respiratory distress, wheezes or stridor Cardiovascular Cardiovascular exam: Present regular rate and normal rhythm Abdominal Exam Abdominal exam: Present soft; Absent distention or tenderness Extremities Exam Extremities exam: Present full ROM Neurological Exam Neurological exam: Present alert and oriented X3; Absent motor sensory deficit Psychiatric Psychiatric exam: Present normal affect, normal mood and other (Patient reports feeling anxious however is behaving appropriately in the ER.); Absent agitated, homicidal ideation or suicidal ideation Skin Skin exam: Present warm and dry Medical Decision Making Medical Records Screening: Per USPSTF and CDC recommendations, given the prevalence of disease in our region, it is our hospital?s policy to screen for HIV and viral Hepatitis for all patients aged 18 and over and those with ongoing risk factors. Esequiel Inquiry Pt receiving controlled substance: No Medical Decision Narrative: In summary, this 38-year-old female with known history of seizure, mood disorder, depression, anxiety which are comorbidities of current condition presents to the emergency department today with complaints of depression, anxiety, no other associated symptoms. On initial evaluation patient is hemodynamically stable, afebrile, physical exam is benign, patient reports depression and anxiety without suicidal or homicidal ideation, no hallucinations, alert and oriented, behaving appropriately. No neurologic deficits. Differential diagnosis includes but is not limited to anxiety, de pression, medication noncompliance. I do not believe patient requires any labs or imaging at this time. This appears to be an exacerbation of her known baseline depression and anxiety without any severe symptoms or any risk of harm to self or others. She received Vistaril in the ER since she reports her last dose of this medication was before bed, over 6 hours ago. Patient continues to be stable, behaving appropriately. I placed referral to behavioral health for outpatient follow-up. Patient and facility were given instructions on symptomatic management, follow up instructions, and return precautions for the emergency department. Patient and facility indicated understanding and patient was discharged in stable condition. Critical Care Critical Care Time Critical Care Time: No
[2024-07-25 02:21] VITALS: BP 140/83; PULSE 97; RESP 18; TEMP 36.8; O2SAT 96; BMI 37.3
[2024-07-25] MEDS: hydrOXYzine pamoate 25MG CAPSULE 50 MG PO (02:28)
[2024-07-25 02:32] VITALS: BP 133/80; PULSE 98; O2SAT 97
[2024-07-25 02:41] VITALS: BP 133/80; PULSE 96; RESP 18; TEMP 36.8; O2SAT 95
== END 2024-07-25 02:43 | disposition home or self-care (01) ==
PROVIDERS: Emergency Provider Emergency Medicine; PCP Nurse Practitioner Acute Care
DX: F41.9 Anxiety disorder, unspecified (principal); F41.0 Panic disorder [episodic paroxysmal anxiety]
CPT/HCPCS: 99283

== ENCOUNTER 2024-11-30 12:40 | Outpatient (CLI) | payer MEDICARE, MEDICAID, SELFPAY ==
--- NOTE | 2024-11-30 12:41 | MM_ITS ---
PROCEDURE INFORMATION: Exam: MG Bilateral Screening 3D Mammography Exam date and time: 11/30/2024 1:15 PM Age: 39 years old Clinical indication: Screening examination.. TECHNIQUE: Imaging protocol: Bilateral Screening tomosynthesis and 2D mammography including computer-aided detection (CAD) when performed. COMPARISON: MG MM DIG SCREENING MAMM BI W/CAD 09/01/2022 10:04 AM FINDINGS: MAMMOGRAPHY: Breast composition: There are scattered areas of fibroglandular density. Mass: None. Architectural distortion: None. Calcifications: No suspicious calcifications. Asymmetric density: None. Skin thickening: None. Axillary adenopathy: None. IMPRESSION: No mammographic evidence of malignancy. Annual screening is recommended unless otherwise clinically indicated. ASSESSMENT: BI-RADS Category 1: Negative.
== END 2024-11-30 23:59 | disposition home or self-care (01) ==
LOC: RAD 12:41
PROVIDERS: PCP Obstetrics & Gynecology; Visit Provider Obstetrics & Gynecology
DX: Z12.31 Encounter for screening mammogram for malignant neoplasm of breast (principal)
CPT/HCPCS: 77063; 77067

== ENCOUNTER 2025-03-24 02:15 | Emergency (ER) | payer MEDICARE, MEDICAID, SELFPAY ==
[2025-03-24] VITALS (12 sets, daily range): BP systolic 111–131; BP diastolic 59–90; PULSE 92–122; RESP 18–22; TEMP 36.7–37.2; O2SAT 92–100; BMI 38.3
--- NOTE | 2025-03-24 02:16 | ECG_ITS ---
APPROVED REPORT Exam: Resting ECG HR:124 bpm ECG Measurements Heart Rate 124 AXES FL 170 P 62 QRSd 71 QRS 97 QT 336 T 54 QTc 410 Conclusion SINUS TACHYCARDIA BORDERLINE RIGHT AXIS DEVIATION [QRS AXIS > 90] NONSPECIFIC T-WAVE ABNORMALITY ABNORMAL RHYTHM ECG No STEMI Electronically signed by : MATHEW AKINS, 03/24/2025 07:47:01
[2025-03-24] MEDS: MORPHINE 4MG/ML SYRINGE 4 MG IV (02:24)
[2025-03-24] MEDS: ONDANSETRON 4MG/2ML VIAL 4 MG IV (02:24)
[2025-03-24 02:25] LABS: Hematocrit 43.0 % (37.0-47.0); Hemoglobin 14.5 g/dL (12.2-16.2); Immature Granulocytes % 0.6 %; Mean Corpuscular HGB Conc 33.7 g/dL (31.8-35.4); Mean Corpuscular Hemoglobin 29.4 pg (27.0-31.2); Mean Corpuscular Volume 87.2 fl (81-99); Nucleated Red Blood Cells % 0 %; Platelet Count 217 K/mm3 (142-424); Red Blood Count 4.93 M/mm3 (4.20-5.40); Red Cell Distribution Width-SD 43.4 fL; White Blood Count 9.7 K/mm3 (4.8-10.8)
[2025-03-24 02:28] LABS: Albumin Level 4.0 g/dl (3.5-5.0); Chloride 96 mmol/L (98-107); Potassium 4.1 mmoL/L (3.5-5.1); Sodium 133 mmol/L (136-145)
[2025-03-24 02:31] LABS: Alanine Aminotransferase 35 U/L (12-78); Albumin/Globulin Ratio 1.3 (1.1-1.8); Alkaline Phosphatase 99 U/L (38-126); Anion Gap 12.1 mEq/L (5-15); Aspartate Amino Transferase 40 U/L (14-36); Bilirubin,Total 0.3 mg/dl (0.2-1.3); Blood Urea Nitrogen 2 mg/dl (7-17); Calcium 9.3 mg/dl (8.4-10.2); Carbon Dioxide 29 mmol/L (22.0-30.0); Creatinine Clearance Estimated 170 mL/min (50-200); Creatinine,Serum 0.60 mg/dl (0.52-1.04); Estimated Glomerular Filt Rate 111 ml/min (>60); GFR (African American) 134 ML/MIN (>60); Globulin 3.1 g/dL (1.3-3.2); Glucose 290 mg/dl (74-100); Total Protein,Serum 7.1 g/dl (6.3-8.2); VBG HCO3 24.5 mmol/L (23-30); VBG PCO2 44.4 mmol/L (35-51); VBG PH 7.36 mmol/L (7.31-7.41); VBG PO2 35.7 mmol/L (28-40)
[2025-03-24 02:34] LABS: INR 0.91 (0.9-1.1); Lactate Venous 2.7 mmol/L (0.4-2.0); Prothrombin Time 10.2 seconds (10.1-12.5)
[2025-03-24 02:41] LABS: NT Pro Brain Natriuretic Pep. 46.6 pg/mL (0-125)
[2025-03-24] MEDS: LACTATED RINGERS 1000ML 1,000 ML 999 ML IV (02:41)
[2025-03-24 02:52] LABS: HCG Qualitative, Serum Negative (Negative)
[2025-03-24 02:58] LABS: Troponin I < 0.01 ng/ml (0.00-0.034)
--- OUTSIDE RECORDS SUMMARY | 2025-03-24 03:07 | XMS_ITS | Clinical Summary ---
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 Mood disorder 06/19/2022 Personality disorder 06/19/2022 Sleep apnea 06/19/2022 Mood insomnia 06/19/2022 Hyperlipidemia 06/19/2022 Resolved Problems Problem Noted Date Diagnosed Date Resolved Date At risk for medication nonadherence 07/10/2023 03/07/2024 Socially inappropriate behavior 10/28/2022 03/07/2024 History of seizures 06/19/2022 03/07/20 Medication monitoring encounter 06/19/2022 03/07/2024 Social History Tobacco Use Types Packs/Day Years Used Date Smoking Tobacco: Never Assessed Comments Unknown Sex and Gender Information Value Date Recorded Sex Assigned at Not on file Legal Sex Female 2:06 PM EDT Gender Identity Not on file Sexual Orientation Not on file Plan of Treatment Health Maintenance Due Date Last Done Comments Wellness Exam Medicare 1987 DTaP/TDaP/Td (1 - Tdap) 2003 Hepatitis B Vaccine (1 of 3 - 19+ 3-dose series) 2003 Cervical Cancer Screening 2005 Pap Smear 2005 HPV/Pap Cotest 2014 COVID-19 Vaccine ( - 2023-2 5 season) 2024 Breast Cancer Screening 2024 Influenza Vaccine (#1) 2025 Meningococcal B Vaccine Aged Out No l onger eligible based on patient's age to complete this topic Pneumococcal Vaccine 0-49 Aged Out No longer eligible based on patient's age to complete this topic Insurance [facility] [employer] [facility] MDR [employer] MEDICARE HMO MR
--- OUTSIDE RECORDS SUMMARY | 2025-03-24 03:07 | XMS_ITS | Data Portability ---
Author Organization [facility] Address [facility] [place] [address] Assessment No assessment recorded. Plan of Treatment Reminders Order Date Submit Date Provider Last Modified By Organization Details Last Modified Time Details Appointments None recorded. Lab urinalysis, dipstick [address], [address], 13:35:05 Referral None recorded. Procedures bladder scan (PROC) [address], [address], 13:35:05 Surgeries None recorded. Imaging None recorded. Medication Orders methenamine hippurate 1 gram tablet 2022 [facility], [address] [facility], [address], [address], 18:16:47 ascorbic acid (vitamin C) 500 mg tablet 2022 023 [facility], [address] [facility], [address], [place], [address], 18:16:48 Patient TargetsNo targets recorded. Patient InstructionsNo instructions recorded. Reason for Referral None Reported. Results Created Date Observation Date Name Description Value Unit Range Abnormal Flag Note LastModifiedBy Organization Detail LastModifiedTime 07/15/2007/15/2023 bladd er scan (PROC ) Calculated Residual Urine: 10 ml Not Available [address], [address], 07/15/2023 11:25:15 07/15/2007/15/2023 urina lysis , dipst ick Leukocytes (reference range) negati ve Not Available [address], [address], 07/15/2023 11:24:19 07/15/2007/15/2023 urina lysis , dipst ick Nitrite (reference range:) negati ve Not Available [address], [address], 07/15/2023 11:24:19 07/15/2007/15/2023 urina lysis , dipst ick Urobilinogen (reference range) 0.2 Not Available [address], [address], 07/15/2023 11:24:19 07/15/2007/15/2023 urina lysis , dipst ick Protein (reference range) negati ve Not Available [address], [address], 07/15/2023 11:24:19 07/15/2007/15/2023 urina lysis , dipst ick pH (reference range 5-8.5) 7.0 Not Available [address], [address], 07/15/2023 11:24:19 07/15/20 23 07/15/2023 urina lysis , dipst ick Blood (reference range:) negati ve Not Available [address], [address], 07/15/2023 11:24:19 07/15/20 23 07/15/2023 urina lysis , dipst ick Specific [place] (reference range) 1.015 Not Available [address], [address], 07/15/2023 11:24:19 07/15/20 23 07/15/2023 urina lysis , dipst ick Ketone (reference range) trace Not Available [address], [address], 07/15/2023 11:24:19 07/15/2007/15/2023 urina lysis , dipst ick Bilirubin (reference range) negati ve Not Available [address], [address], 07/15/2023 11:24:19 07/15/2007/15/2023 urina lysis , dipst ick Glucose (reference range) negati ve Not Available [address], [address], 07/15/2023 11:24:19 Result Notes None recorded. Problems Name Problem SNOMED Code Status Onset Date Resolution Date Notes Provider Name and Address Organization Details Recorded Time Sleep apnea 59885024 Active 2022 Kelly Harrington null, [place] - [facility] [place] & [place] 10:38:35 Irregular heart beat 235830915 Active 2022 Kelly Har[place] null, [place] [facility] [place] & [place] 10:38:48 Hypertensive disorder 01510929 Active 2022 Kelly Har[place] null, [place] [facility] [place] 10:39:20 Anxiety 10477428 Active 2022 Kelly Harrington null, [place] [facility] [place] & [place] 10:39:27 Seizure 84892889 Active 2022 Kelly Harrington null, [place] - [facility] [place] & [place] 10:39:34 Depressive disorder 08792522 Active 2022 CHANDU Au [facility] & [place] 10:39:41 Problem Notes None recorded. Procedures Surgical History Date Name Laterality Status Provider Name and Address Organization Details Recorded Time cholecystectomy completed Kelly TRIPLETT [facility] & [place] 07/15/2023 10:41:00 dilation of urethra completed Munir TRIPLETT [facility] & [place] 07/15/2023 10:41:10 Imaging Results None recorded. Procedure Notes None recorded. Medical Equipment None Reported. Allergies Allergen ID Allergen Name Allergen Category Reaction Reaction Severity Criticality Documentation Date Start Date Code Code System Note Provider Name and Address Organization Details Recorded Time 488758 pseudoeph edrine Not available Not available Not available Not available 07/15/2023 8896 RxNorm CHANDU Au [facility] & [place] 10:37:05 774466 Mucinex medicatio n Not available Not available Not available 07/15/2023 16412 7 RxNorm CHANDU Au [facility] & [place] 10:37:13 Medications Name Sig Start Date Stop Date Status Note LastModified by Organization Details LastModified Time fluconazole 100 mg tablet active Not Available Not Available No t Available loperamide 2 mg capsule active Not Available Not Available Not Available atorvastatin 10 mg tablet active Not Available Not Available No t Available risperidone 4 mg tablet active Not Available Not Available Not Available ondansetron HCl 4 mg tablet active Not Available Not Available Not Available hydroxyzine pamoate 50 mg capsule active Not Available Not Available Not Available divalproex 500 mg tablet,delayed release active Not Available Not Available Not Available ciprofloxacin 500 mg tablet active Not Available Not Availabl e Not Available acetaminophen 500 mg tablet active Not Available Not Availabl e Not Available risperidone 3 mg tablet active Not Available Not Available Not Available bisoprolol fumarate 5 mg tablet active Not Available Not Available Not Available risperidone 2 mg tablet active Not Available Not Available Not Available methenamine hippurate 1 gram tablet Take 1 tablet every day by oral route. 2022 active Not Available Not Available Not Avai lable famotidine 20 mg tablet active Not Available Not Available Not Available ascorbic acid (vitamin C) 500 mg tablet Take 1 tablet 3 times a day by oral route. 2022 active Not Available Not Available Not Avai lable cephalexin 500 mg capsule active Not Available Not Available N ot Available pantoprazole 40 mg tablet,delayed release active Not Available Not Available Not Available oseltamivir 75 mg capsule active Not Available Not Available N ot Available benztropine 1 mg tablet active Not Available Not Available Not Available mirtazapine 15 mg tablet active Not Available Not Available No t Available levofloxacin 500 mg tablet active Not Available Not Available No t Available methylprednisolo ne 4 mg tablets in a dose pack active Not Available Not Availab le Not Available fluticasone propionate 50 mcg/actuation nasal spray,suspension active Not Available Not Avail able Not Available risperidone 1 mg tablet active Not Available Not Available Not Available medroxyprogester one 150 mg/mL intramuscular suspension active Not Available Not Available N ot Available loratadine 10 mg tablet active Not Available Not Available Not Available oxycodone 5 mg tablet active Not Available Not Available Not Available hydroxyzine pamoate 25 mg capsule active Not Available Not Available Not Available neomycin-polymyx in-hydrocort 3.5 mg-10,000 unit/mL-1 % ear drops,susp active Not Available Not Available N ot Available Vitals Date Recorded Body height Body mass index (BMI) Body temperature Provider Name and Address Organization Details Last Updated DateTime 07/15/2023 149.86 cm 199 kg/m2 97.5 [degF] Kelly Harrington [facility] & [place] 07/15/2023 10:36:50 Social History None recorded. Functional Status Question Answer Note LastModified by Organization D etails LastModified Time What is your level of alcohol consumption? None [email or web address] Information not available 07/15/2023 Mental Status None recorded. Family History Relationship Description Onset Age of this Age Resolved Age Notes LastModified by Organization Details LastModified Time Mother Family history unknown [email or web address] Not available 2022 10:40:20 Brother Family history unknown [email or web address] Not available 2022 10:40:20 Sister Family history unknown [email or web address] Not available 2022 10:40:20 Father Pulmonary embolism dec [email or web address] Not available 2022 10:40:34 Medical History No medical history recorded. Gynecological HistoryNo gynecological history recorded. Obstetrics History GPAL:G 0 P 0 0 0 0 Past Encounters Encounter ID Performer Location Encounter Start Date Encounter Closed Date Diagnosis/Indication Diagnosis SNOMED-CT Code Diagnosis ICD10 Code Diagnosis Note [id number] Esau Arciniega Jr, MD [facility] [address] [address] 07/15/2023 09:27:15 07/15/2023 11:15:41 Recurrent urinary tract infection 511084950 N39.0 Patient with history of recurring urinary tract infections . It is having some discomfort with urination at the present time and wanted to be checked. She was reassured her urinalysis today is within normal limits and that she is emptying her bladder out well. We discussed treatment for recurring urinary tract infections including drinking at least 60 oz of water and medication s to help acidify her urine. Methenamin e and vitamin-C were called in for her.Nasra booker's bladder scan today shows a residual of 10 cc and she does not want to proceed with urethral dilation. Health Concerns Section Related Observation LastModified by Organization Detai ls LastModified Time None Recorded Concern Status LastModified by Organization Details LastModified Time None Recorded Advance Directives Directive None Recorded Payers Insurance Date Sequence Insurance Name Policy Number Policy Mckeon Covered Member ID Mckeon Member ID Guarantor Name 07/21/2023 1 [employer] (MEDICARE REPLACEMENT/ ADVANTAGE - HMO) Maribel Simmonscell [id number] Maribel [place] Notes Date Note Type Note Provider Name and Address Organization Details Recorded Time 07/15/2023 text/html Patient is a 37-year-old female with history of urethral stenosis. She comes in today complaining of some painful urination. She has required urethral dilations in the past and is worried that she may need another. She previously saw a urologist in [facility]. Her bladder scan today shows a residual of 10 cc and her urinalysis is within normal limits. She gives a history of 3-4 urinary tract infections per year. Her symptoms are typically dysuria and urinary frequency. Esau Arciniega Jr, MD [address] [place] [address], [address], [place], [address], [facility] & [place] 07/20/2023 16:43:21 OBGyn Episode No OBEpisode recorded.
--- OUTSIDE RECORDS SUMMARY | 2025-03-24 03:07 | XMS_ITS | Patient Health Record ---
Author Organization [facility] Address [address] [place] [address] Support Name Relationship Address Phone DAMIEN WEBBER Guarantor Unknown [phone] Allergies Allergen (clinical drug ingredient) Drug/Non Drug Allergy documented on EMR Reaction Allergy Type Onset Date Status guaifenesin Mucinex Unknown Drug Allergy Activ e Sudafed rash Drug Allergy Active Reason For Referral No Information Medications Medication SIG (Take, Route, Frequency, Duration) Notes Start Date End Date Status ARIPiprazole 20 MG for 30 A ctive Lisinopril 10 MG TAKE 1 TABLET BY RHONDA TH EVERY DAY FOR HIGH BLOOD PRESSURE for 90 Active Benztropine Mesylate 1 MG 1 tab(s) orall y 2 times a day for 30 day(s) 05/23/2021 Active Mirtazapine 30 MG TAKE 1 TABLET BY RHONDA TH AT BEDTIME for 30 Active Topiramate 50 MG for 30 Act lulu Citalopram Hydrobromide 40 MG 1 tab(s) orally once a day for 30 day(s) 05/23/2021 Active Divalproex Sodium 500 MG TAKE 2 TABLETS BY MOUTH TWICE DAILY for 30 Active traZODone HCl 50 MG 1 tab(s) orally 2 ti mes a day for 30 day(s) 05/23/2021 Active Problems Problem Type SNOMED Code ICD Code Onset Dates Problem Status W/U Status Risk Notes Problem Body mass index 40+ - morbidly obese (777439816) BMI 40.0-44.9, adult (Z68.41) Active confirmed Plan Of Treatment No Information Insurance Providers Payer Name Payer Address Payer Phone Subscriber Number Group Number Insured Name Patient Relationship to Insured Coverage Start Date Coverage End Date [employer] [place] [address] [address] [place] [address] [id number] DAMIEN WEBBER Self - patient is the insured Medical (General) History Medical History History ICD Code HYPERTENSION BORDERLINE DIABETIC schizophrenia seizures Surgical History Surgery Date(Month/Year) urinary surgery 2015
[2025-03-24 03:39] LABS: Microscopic, Urine URINE MICROSCOPIC (MICROSCOPIC)
[2025-03-24 03:40] LABS: Bilirubin,Urine Negative (Negative); Color,Urine YELLOW (Yellow); Glucose,Urine (UA) 1+ (Negative); Ketones,Urine 1+ (Negative); Leukocyte Esterase,Urine Negative (Negative); PH,Urine 6.0 (5.0-8.5); Protein,Urine Negative (Negative); Specific Gravity, Urine 1.025 (1.005-1.030); Urobilinogen,Urine 0.2 EU/dl (0.2)
[2025-03-24 03:52] LABS: Bacteria,Urine Trace /lpf
[2025-03-24 05:27] LABS: Troponin I < 0.01 ng/ml (0.00-0.034)
--- NOTE | 2025-03-24 06:22 | HMH.EDCP ---
Discharge Plan Disposition Patient Disposition: Home, Self-Care Condition: Good Prescriptions Prescriptions: No Action acetaminophen 500 mg tablet 500 mg PO TID PRN (Reason: Pain) hydroxyzine pamoate 50 mg capsule 50 mg PO DIRECTED PRN (Reason: Anxiety) loperamide 2 mg capsule 2 mg PO Q3HWA atorvastatin 10 mg tablet 10 mg PO HS divalproex 500 mg tablet,delayed release (DR/EC) 1,000 mg PO HS divalproex 500 mg tablet,delayed release (DR/EC) 500 mg PO BID bisoprolol fumarate 5 mg tablet 5 mg PO DAILY benztropine 1 mg tablet 1 mg PO BID mirtazapine 15 mg tablet 15 mg PO HS risperidone 2 mg tablet 4 mg PO BID azelastine 137 mcg (0.1 %) spray,non-aerosol 2 spray intranasal BID Qty: 30 2RF Rx Instructions: administer into each nostril atorvastatin 20 mg tablet PO risperidone 4 mg tablet PO methenamine hippurate 1 gram tablet PO famotidine 20 mg tablet PO ascorbic acid (vitamin C) 500 mg tablet PO polyethylene glycol 3350 17 gram/dose powder PO cyclobenzaprine 5 mg tablet PO cholecalciferol (vitamin D3) 1,250 mcg (50,000 unit) capsule PO cetirizine 10 mg tablet,disintegrating 10 mg PO DAILY multivit with min-folic acid [Vitajoy Adult Multi] 200 mcg tablet,chewable PO ondansetron HCl 4 mg Tablet 4 mg PO Q8H pantoprazole 40 mg tablet,delayed release (DR/EC) See Rx Instructions .ROUTE .COMPLEX Rx Instructions: GIVE 1 TABLET BY MOUTH ONCE DAILY medroxyprogesterone 150 mg/mL suspension See Rx Instructions .ROUTE .COMPLEX Rx Instructions: INJECT 1ML (150MG) I.M. 150MG EVERY 3 MONTHS Referrals Follow up/Referrals: Kody Ojeda MD [Staff Physician, Cardiology] - See instructions Referral Note: Chest pain eval in ER, reassuring, needs follow-up Provider,Referral, [Primary Care Provider, Medical] - See instructions Activity Restrictions/Add. Instructions Additional Instructions/Restrictions: You were evaluated in the ER and are appropriate for discharge at this time. Continue home medications as previously prescribed. Call cardiology office for close outpatient follow-up on Thursday. Make an appointment with primary care doctor for reevaluation in 2 to 3 days. Return to the ER with new, worsening, or otherwise concerning symptoms. Clinical Impressions Clinical Impression: Chest pain Print Language Print Language: [place] Citizen Discharge ED Provider: Jourdan Allen General Chief Complaint: Chest Pain Stated Complaint: Chest pain Time Seen by Provider: 03/24/25 02:19 Mode of Arrival: EMS Source of Information: Patient and EMS Description of Symptoms (Recalled from ER Triage Doc. by RN): patient c/o chest pain that started approximately 10 minutes before EMS was called. EMS gave 324 asprin, 1 nitro, and fluids. History of Present Illness HPI narrative: 39-year-old female presents to the ER complaining of chest pain starting shortly prior to arrival. EMS reports they administered 324 of aspirin and 1 nitro prior to arrival, patient became hypotensive with nitro so fluids were administered. She has recovered well. Patient reports her chest pain is already improving. Patient reports she lives at [place], she had not had anything to eat so she ate flaming hot Cheetos and started having chest pain, she went outside to smoke after taking a Vistaril and was not feeling better so EMS was called. Patient reports she feels significantly better already. She states she has had pain like this from the flaming hot snacks before. She is not having any nausea or vomiting, no sweating, headache, dizziness, numbness, tingling, weakness, fever, chills, or any other associated symptoms Related Data Home Medications ?Medication ?Instructions ?Recorded ?Confirmed acetaminophen 500 mg tablet 500 mg PO TID PRN Pain 11/12/22 03/09/25 hydroxyzine pamoate 50 mg capsule 50 mg PO DIRECTED PRN Anxiety 11/12/22 03/09/25 loperamide 2 mg capsule 2 mg PO Q3HWA dirrhea 11/12/22 03/09/25 atorvastatin 10 mg tablet 10 mg PO HS Cholesterol 11/26/22 03/09/25 benztropine 1 mg tablet 1 mg PO BID parkinson disease 11/26/22 03/09/25 bisoprolol fumarate 5 mg tablet 5 mg PO DAILY blood pressure 11/26/22 03/09/25 divalproex 500 mg tablet,delayed 1,000 mg PO HS seizures 11/26/22 03/09/25 release divalproex 500 mg tablet,delayed 500 mg PO BID seizures 11/26/22 03/09/25 release mirtazapine 15 mg tablet 15 mg PO HS Depression 11/26/22 03/09/25 medroxyprogesterone 150 mg/mL See Rx Instructions .Route 01/20/23 03/09/25 intramuscular suspension .COMPLEX Supplement ondansetron HCl 4 mg tablet 4 mg PO Q8H Nausea & vomiting 01/20/23 03/09/25 pantoprazole 40 mg tablet,delayed See Rx Instructions .Route 01/20/23 03/09/25 release .COMPLEX gerd risperidone 2 mg tablet 4 mg PO BID mood 05/08/23 03/09/25 ascorbic acid (vitamin C) 500 mg PO 03/09/25 03/09/25 tablet atorvastatin 20 mg tablet mg PO 03/09/25 03/09/25 cetirizine 10 mg disintegrating 10 mg PO DAILY 03/09/25 03/09/25 tablet cholecalciferol (vitamin D3) 1,250 PO 03/09/25 03/09/25 mcg (50,000 unit) capsule cyclobenzaprine 5 mg tablet mg PO 03/09/25 03/09/25 famotidine 20 mg tablet mg PO 03/09/25 03/09/25 methenamine hippurate 1 gram tablet g PO 03/09/25 03/09/25 multivitamin with minerals-folic tab PO 03/09/25 03/09/25 acid 200 mcg chewable tablet (Vitajoy Adult Multi) polyethylene glycol 3350 17 g PO 03/09/25 03/09/25 gram/dose oral powder risperidone 4 mg tablet mg PO 03/09/25 03/09/25 Previous Rx's ?Medication ?Instructions ?Recorded azelastine 137 mcg (0.1 %) nasal 2 spray intranasal BID #30 mL 01/31/25 spray Allergies Allergy/AdvReac Type Severity Reaction Status Date / Time latex Allergy Verified 03/09/25 13:45 guaifenesin (From Mucinex) AdvReac Verified 03/09/25 13:45 pseudoephedrine (From AdvReac Verified 03/09/25 13:45 Sudafed) [facility] Disclaimer: The information contained in this section may have been updated after the patient was seen, as this information can be updated by other users. Medical History (Updated 03/24/25 @ 05:38 by Jourdan Allen MD) Chronic eustachian tube dysfunction Impacted cerumen, right ear Hearing loss Ear pain Epidermal inclusion cyst History of stroke History of cancer Diabetes Hyperlipidemia Atypical chest pain Encounter for pre-operative cardiovascular clearance Abnormal electrocardiogram [ECG] [EKG] Personality disorder Mood disorder Sleep apnea Chronic cholecystitis with calculus Bicornuate uterus Schizophrenia History of prediabetes Borderline personality disorder Seizure disorder Depression Anxiety Hypertension Surgical History History of laparoscopic cholecystectomy S/P cystourethroscopy with dilation of urethral stricture [place] teeth extracted Family History Other Alcoholism Asthma Bleeding disorder Cancer Coronary artery disease Depression Diabetes FHx: mental illness Heart attack Hyperlipidemia Hypertension Kidney disease SAMMY (obstructive sleep apnea) Obesity (BMI 30.0-34.9) Stroke Substance abuse Social History Smoking Status: Current every day smoker alcohol intake: never substance use type: denies use current occupational status: unemployed and other Travel in the last 8 weeks?: None household members: other details: At [place] housing: assisted living facility Other Medical History Have you received the Flu Vaccine for this season: No Have you received the Pneumonia Vaccine: No ROS Obtained: Yes Systems reviewed as appropriate & no additional complaints except as documented Per HPI Physical Exam General General appearance: alert and in no apparent distress Head Head exam: atraumatic and normocephalic Eye Eye exam: Present PERRL and EOMI ENT ENT exam: Present mucous membranes moist Neck Neck exam: Present normal inspection and full ROM Chest Chest inspection: Present symmetric chest wall rise; Absent tenderness Respiratory Respiratory exam: Present normal lung sounds bilaterally; Absent respiratory distress, wheezes or stridor Cardiovascular Cardiovascular exam: Present regular rate and normal rhythm Abdominal Exam Abdominal exam: Present soft; Absent distention or tenderness Extremities Exam Extremities exam: Present full ROM Neurological Exam Neurological exam: Present alert and oriented X3; Absent motor sensory deficit Psychiatric Psychiatric exam: Present normal affect and normal mood Skin Skin exam: Present warm and dry HEART Score HEART Score HEART Score assessment performed?: Yes History (anamnesis): Slightly suspicious ECG: Non-specific disturbance Age: <45 years Risk factors: 1-2 risk factors Troponin: </= normal limit HEART Score: 2 Critical Care Critical Care Time Critical Care Time: No Medical Decision Making Medical Records Medical records reviewed: Yes I reviewed the patient's medical records. Esequile Inquiry Pt receiving controlled substance: No Vital Signs Vital Signs: 03/24/25 02:17 03/24/25 02:22 03/24/25 02:30 Temperature 98.9 F Temperature Source Oral Pulse Rate 115 H 109 H Pulse Rate [Left] 122 H Respiratory Rate 18 21 Blood Pressure 127/66 Blood Pressure [Right Arm] 131/90 Blood Pressure Mean Blood Pressure Mean [Right Arm] 103 Blood Pressure Source [Right Arm] Automatic Cuff Blood Pressure Position Blood Pressure Position [Right Arm] Sitting 02 Sat by Pulse Oximetry 98 97 Oxygen Delivery Method Room Air Room Air 03/24/25 03:00 03/24/25 03:35 03/24/25 04:00 Temperature Temperature Source Pulse Rate 102 H 103 H 98 H Pulse Rate [Left] Respiratory Rate 22 22 20 Blood Pressure 130/79 111/59 L 129/79 Blood Pressure [Right Arm] Blood Pressure Mean 76 90 Blood Pressure Mean [Right Arm] Blood Pressure Source [Right Arm] Blood Pressure Position Blood Pressure Position [Right Arm] 02 Sat by Pulse Oximetry 100 97 97 Oxygen Delivery Method 03/24/25 04:30 03/24/25 05:00 03/24/25 05:30 Temperature Temperature Source Pulse Rate 100 H 94 H 96 H Pulse Rate [Left] Respiratory Rate 22 19 19 Blood Pressure 112/76 116/75 118/83 Blood Pressure [Right Arm] Blood Pressure Mean Blood Pressure Mean [Right Arm] Blood Pressure Source [Right Arm] Blood Pressure Position Blood Pressure Position [Right Arm] 02 Sat by Pulse Oximetry 95 96 92 L Oxygen Delivery Method Room Air Room Air 03/24/25 06:00 03/24/25 06:09 03/24/25 06:30 Temperature 98.0 F Temperature Source Oral Pulse Rate 93 H 93 H 92 H Pulse Rate [Left] Respiratory Rate 18 18 18 Blood Pressure 118/73 118/73 121/80 Blood Pressure [Right Arm] Blood Pressure Mean 100 Blood Pressure Mean [Right Arm] Blood Pressure Source [Right Arm] Blood Pressure Position Supine Blood Pressure Position [Right Arm] 02 Sat by Pulse Oximetry 95 94 L Oxygen Delivery Method Room Air Room Air Lab Data Labs: Lab Results 03/24/25 02:00: WBC 9.7, RBC 4.93, Hgb 14.5, Hct 43.0, MCV 87.2, MCH 29.4, MCHC 33.7, RDW 13.6, Plt Count 217, MPV 9.4, Neut % (Auto) 49.6, Lymph % (Auto) 38.8, [place] % (Auto) 9.4 H, Eos % (Auto) 1.3, Baso % (Auto) 0.3, Neut # (Auto) 4.8, Lymph # (Auto) 3.8, Darke # (Auto) 0.9, Eos # (Auto) 0.1, Baso # (Auto) 0.0, PT 10.2, INR 0.91, VBG pH 7.36, VBG pCO2 44.4, VBG pO2 35.7, VBG HCO3 24.5, VBG Total CO2 25.9, VBG O2 Saturation 72.3 H, VBG Base Excess -0.9, VBG Lactic Acid 2.7 H, Sodium 133 L, Potassium 4.1, Chloride 96 L, Carbon Dioxide 29, Anion Gap 12.1, BUN 2 L, Creatinine 0.60, Estimated Creat Clear 170, Estimated GFR 111, Est GFR ( Amer) 134, Glucose 290 H, Calcium 9.3, Total Bilirubin 0.3, AST 40 H, ALT 35, Alkaline Phosphatase 99, Troponin I < 0.01, NT-Pro-B Natriuret Pep 46.6, Total Protein 7.1, Albumin 4.0, Globulin 3.1, Albumin/Globulin Ratio 1.3, Serum HCG, Qual Negative 03/24/25 03:37: Urine Color Yellow, Urine Appearance Clear, Urine pH 6.0, Ur Specific [place] 1.025, Urine Protein Negative, Urine Glucose (UA) 1+, Urine Ketones 1+, Urine Blood Negative, Urine Nitrate Negative, Urine Bilirubin Negative, Urine Urobilinogen 0.2, Ur Leukocyte Esterase Negative, Urine RBC None, Urine WBC 10-20, Ur Squamous Epith Cells 5-10, Urine Bacteria Trace 03/24/25 04:55: Troponin I < 0.01 03/24/25 02:00 03/24/25 02:00 Response Orders (Tests/Meds): ED MEDICATIONS Discontinued Medications Generic Name Dose Route Start Last Admin Trade Name Freq PRN Reason Stop Dose Admin Lactated Ringer's 1,000 mls @ 999 mls/hr 03/24/25 02:33 03/24/25 02:41 Lactated Ringer's 1000 Ml Bag IV 03/24/25 03:33 999 mls/hr .Q1H1M ONE Administration Morphine Sulfate 4 mg 03/24/25 02:19 03/24/25 02:24 Morphine 4mg/Ml Syringe IV 03/24/25 02:20 4 mg ONCE ONE Administration Ondansetron HCl 4 mg 03/24/25 02:19 03/24/25 02:24 Ondansetron 4mg/2ml Vial IV 03/24/25 02:20 4 mg ONCE ONE Administration ORDERS Category Date Time Status CXR --portable [XR chest portable] Stat Exams 03/24/25 06:32 Taken Complete Blood Count Auto Diff Stat Lab 03/24/25 02:00 Completed Comprehensive Metabolic Panel Stat Lab 03/24/25 02:00 Completed HCG Qualitative, Serum Stat Lab 03/24/25 02:00 Completed NT Pro Brain Natriuretic Pep. Stat Lab 03/24/25 02:00 Completed Prothrombin Time INR Stat Lab 03/24/25 02:00 Completed Troponin I Q3H Lab 03/24/25 04:55 Completed Troponin I Stat Lab 03/24/25 02:00 Completed UA [Urinalysis and Microscopic] Stat Lab 03/24/25 03:37 Completed Urine Culture Stat Micro 03/24/25 03:37 Received Venous Blood Gas Stat RT 03/24/25 02:00 Completed MDM Narrative Medical Decision Narrative: In summary, this 39-year-old female with history of anxiety, panic attacks, tachycardia, abnormal EKG, schizophrenia, hypertension, hyperlipidemia presents to the emergency department today with chest pain after eating flaming hot Cheetos. On initial evaluation patient is hemodynamically stable, afebrile, GCS 15, cardiopulmonary exam is benign, patient's chest pain is already spontaneously improved and almost absent upon arrival to the ER. Pain is not reproducible on exam. Differential diagnosis includes but is not limited to ACS, PE was considered but patient was only tachycardic on arrival and her tachycardia spontaneously resolved and she is PERC negative, esophageal spasm, given her recent choice of flaming hot Cheetos, also considered the possibility of reflux/heartburn, additionally considered pneumothorax, pneumonia, among others. Based on these concerns, I ordered serum labs, cardiac workup, chest x-ray. ECG personally interpreted demonstrates sinus tachycardia, rate 124, normal axis, normal ND and QTc, no STEMI. Patient received LR, morphine, Zofran for treatment. She had already received aspirin and nitro prior to arrival and symptoms were nearly absent at the time of my assessment. Labs personally reviewed demonstrate no leukocytosis or anemia, platelets normal, PT/INR normal, VBG with normal pH, lactic slightly elevated on VBG but patient is tolerating oral intake, no concern for endorgan damage at this time, CMP nonactionable, initial troponin undetectably low less than 0.01 comforting test negative, UA negative for findings of infection. XR personally interpreted demonstrates no acute intrathoracic abnormality, see radiology for final interpretation. Patient was placed in ED observation at 0430 for serial troponins to rule out evolving evolving MA and preclude unnecessary admission. 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 She remains completely asymptomatic, she is asking for food and drink and would like to go home. She has remained with heart rate in the upper 80s to low 90s and resting comfortably. Repeat troponin also undetectably low less than 0.01. I believe she is appropriate for discharge at this time. I provided referral to cardiology for outpatient follow-up and reevaluation, instructions for symptomatic monitoring and management, follow-up instructions, and strict return precautions for the ER. She indicated understanding and the patient was discharged in stable condition. Total time in ED observation: 2 hours
[2025-03-24 06:32] LABS: Reflex Lactic Add Lactic Reflex
--- NOTE | 2025-03-24 06:32 | XR_ITS ---
PROCEDURE INFORMATION: Exam: XR Chest Exam date and time: 03/24/2025 6:36 AM Age: 39 years old Clinical indication: Other: Chest pain; Additional info: Cp TECHNIQUE: Imaging protocol: Radiologic exam of the chest. Views: 1 view. COMPARISON: CR XR CHEST PORTABLE 05/31/2023 1:22 PM FINDINGS: Lungs: Low lung volumes with bronchovascular crowding. No focal consolidation. Pleural spaces: No pneumothorax or pleural effusion. Heart/Mediastinum: Apparent cardiomegaly, accentuated by low volumes. Bones/joints: No acute osseous or soft tissue abnormality. IMPRESSION: 1. Low lung volumes with bronchovascular crowding. 2. Apparent cardiomegaly.
--- NOTE | 2025-03-24 06:57 | PC.NURSE ---
Trip [place] on the way to warehouse picker pt.
== END 2025-03-24 07:14 | disposition home or self-care (01) ==
PROVIDERS: Emergency Provider Emergency Medicine
DX: R07.9 Chest pain, unspecified (principal); R00.0 Tachycardia, unspecified; F17.210 Nicotine dependence, cigarettes, uncomplicated; I10 Essential (primary) hypertension; E78.5 Hyperlipidemia, unspecified
CPT/HCPCS: 71045; 80053; 81001; 82803; 83880; 84484; 84703; 85025; 85610; 87086; 93005; 96361; 96374; 96375; 99285; J2270; J2405; J7120

== ENCOUNTER 2025-07-18 21:51 | Emergency (ER) | payer MEDICARE, MEDICAID, SELFPAY ==
[2025-07-18 21:53] VITALS: BP 156/88; PULSE 114; RESP 16; TEMP 37; O2SAT 94; BMI 38.1
--- OUTSIDE RECORDS SUMMARY | 2025-07-18 21:58 | XMS_ITS | Clinical Summary ---
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 hydrOXYzine (VISTARIL) 50 mg Oral Capsule GIVE 1 CAPSULE BY MOUTH EVERY 8 HOURS NEEDED 60 Capsule 11 06/16/2025 Active Active Problems Problem Noted Date Diagnosed Date [...] 2005 Pap Smear 2005 HPV/Pap Cotest 2014 Breast Cancer Screening 2024 COVID-19 Vaccine ( - 2024-2 6 season) 2025 Influenza Vaccine (#1) 2025 Meningococcal B Vaccine Aged Out No l onger eligible based on patient's age to complete this topic Pneumococcal Vaccine 0-49 Aged Out No longer eligible based on patient's age to complete this topic [place] [place] [address] [facility] MR
--- OUTSIDE RECORDS SUMMARY | 2025-07-18 21:58 | XMS_ITS | Patient Health Record ---
Author Organization [facility] Address [address] [place] [address] Support Name Relationship Address Phone DAMIEN WEBBER Guarantor Unknown [phone] Allergies Allergen (clinical drug ingredient) Drug/Non Drug Allergy documented on EMR Reaction Allergy Type Onset Date Status guaifenesin Mucinex Unknown Drug Allergy Activ e Sudafed rash Drug Allergy Active Reason For Referral No Information Medications Medication SIG (Take, Route, Frequency, Duration) Notes Start Date End Date Status ARIPiprazole 20 MG ; Duration: 30 Active Lisinopril 10 MG TAKE 1 TABLET BY RHONDA TH EVERY DAY FOR HIGH BLOOD PRESSURE; Duration: 90 Active Benztropine Mesylate 1 MG 1 tab(s) orall y 2 times a day; Duration: 30 day(s) 05/23/2021 Active Mirtazapine 30 MG TAKE 1 TABLET BY RHONDA TH AT BEDTIME; Duration: 30 Active Topiramate 50 MG ; Duration: 30 Active Citalopram Hydrobromide 40 MG 1 tab(s) orally once a day; Duration: 30 day(s) 05/23/2021 Active Divalproex Sodium 500 MG TAKE 2 TABLETS BY MOUTH TWICE DAILY; Duration: 30 Active traZODone HCl 50 MG 1 tab(s) orally 2 ti mes a day; Duration: 30 day(s) 05/23/2021 Active Problems Problem Type SNOMED Code ICD Code Onset Dates Problem Status W/U Status Risk Notes Problem Body mass index 40+ - morbidly obese (887342652) BMI 40.0-44.9, adult (Z68.41) Active confirmed Plan Of Treatment No Information Insurance Providers Payer Name Payer Address Payer Phone Subscriber Number Group Number Insured Name Patient Relationship to Insured Coverage Start Date Coverage End Date [employer] [place] [address] [address] [place] [phone] [id number] AKBAR, DAMIEN Self - patient is the insured Medical (General) History Medical History History ICD Code HYPERTENSION BORDERLINE DIABETIC schizophrenia seizures Surgical History Surgery Date(Month/Year) urinary surgery 2015
--- OUTSIDE RECORDS SUMMARY | 2025-07-18 21:58 | XMS_ITS | Data Portability ---
Author Organization [facility] [place] Address [facility] [place] [address] Assessment No assessment recorded. Plan of Treatment Reminders Order Date Submit Date Provider Last Modified By Organization Details Last Modified Time Details Appointments None recorded. Lab urinalysis, dipstick [address], [address], 13:35:05 Referral None recorded. Procedures bladder scan (PROC) [address], [address], 13:35:05 Surgeries None recorded. Imaging None recorded. Medication Orders methenamine hippurate 1 gram tablet 2022 [facility], [address] [facility], [address], [address], 18:16:47 ascorbic acid (vitamin C) 500 mg tablet 2022 023 [facility], [address] [facility], [address], [place], [address], 18:16:48 Patient TargetsNo targets recorded. Patient InstructionsNo instructions recorded. Reason for Referral None Reported. Results Created Date Observation Date Name Description Value Unit Range Abnormal Flag Note LastModifiedBy Organization Detail LastModifiedTime 07/15/2007/15/2023 bladd er scan (PROC ) Calculated Residual Urine: 10 ml Not Available [address], [address], 07/15/2023 11:25:15 07/15/2007/15/2023 urina lysis , dipst ick Leukocytes (reference range) negati ve Not Available [address], [address], 07/15/2023 11:24:19 07/15/2007/15/2023 urina lysis , dipst ick Nitrite (reference range:) negati ve Not Available [address], [address], 07/15/2023 11:24:19 07/15/2007/15/2023 urina lysis , dipst ick Urobilinogen (reference range) 0.2 Not Available [address], [address], 07/15/2023 11:24:19 07/15/2007/15/2023 urina lysis , dipst ick Protein (reference range) negati ve Not Available [address], [address], 07/15/2023 11:24:19 07/15/2007/15/2023 urina lysis , dipst ick pH (reference range 5-8.5) 7.0 Not Available [address], [address], 07/15/2023 11:24:19 07/15/20 23 07/15/2023 urina lysis , dipst ick Blood (reference range:) negati ve Not Available [address], [address], 07/15/2023 11:24:19 07/15/20 23 07/15/2023 urina lysis , dipst ick Specific Steele (reference range) 1.015 Not Available [address], [address], 07/15/2023 11:24:19 07/15/20 23 07/15/2023 urina lysis , dipst ick Ketone (reference range) trace Not Available [address], [address], 07/15/2023 11:24:19 07/15/2007/15/2023 urina lysis , dipst ick Bilirubin (reference range) negati ve Not Available [address], [address], 07/15/2023 11:24:19 07/15/2007/15/2023 urina lysis , dipst ick Glucose (reference range) negati ve Not Available [address], [address], 07/15/2023 11:24:19 Result Notes None recorded. Problems Name Problem SNOMED Code Status Onset Date Resolution Date Notes Provider Name and Address Organization Details Recorded Time Sleep apnea 75593734 Active 2022 Kelly Harrington null, [place] - [facility] [place] 10:38:35 Irregular heart beat 615736553 Active 2022 Kelly Har[place] null, [place] [facility] [place] 10:38:48 Hypertensive disorder 77764512 Active 2022 Kelly Har[place] null, [place] [facility] [place] [facility] [place] 10:39:20 Anxiety 91664377 Active 2022 Kelly Har[place] null, [place] [facility] [place] [facility] [place] 10:39:27 Seizure 04451934 Active 2022 Kelly Harrington null, [place] [facility] [place] 10:39:34 Depressive disorder 55453843 Active 2022 CHANDU Au [place] [facility] [place] 10:39:41 Problem Notes None recorded. Procedures Surgical History Date Name Laterality Status Provider Name and Address Organization Details Recorded Time cholecystectomy completed Kelly TRIPLETT [place] [facility] [place] 07/15/2023 10:41:00 dilation of urethra completed Munir TRIPLETT [place] [facility] [place] 07/15/2023 10:41:10 Imaging Results None recorded. Procedure Notes None recorded. Medical Equipment None Reported. Allergies Allergen ID Allergen Name Allergen Category Reaction Reaction Severity Criticality Documentation Date Start Date Code Code System Note Provider Name and Address Organization Details Recorded Time [id number] pseudoeph edrine Not available Not available Not available Not available 07/15/2023 [address] [facility] [place] 10:37:05 715496 Mucinex medicatio n Not available Not available Not available 07/15/2023 96294 7 RxNorm CHANDU Au [place] [facility] [place] 10:37:13 Medications Name Sig Start Date Stop [...] 199 kg/m2 97.5 [degF] Kelly Harrington [facility] & [place] 07/15/2023 10:36:50 Social History None recorded. Functional Status Question Answer Note LastModified by Organization D etails LastModified Time What is your level of alcohol consumption? None [email or web address] Information not available 07/15/2023 Mental Status None recorded. Family History Relationship Description Onset Age of this Age Resolved Age Notes LastModified by Organization Details LastModified Time Mother Family history unknown [email or web address] Not available 2022 10:40:20 Brother Family history unknown [email or web address] Not available 2022 10:40:20 Sister Family history unknown [email or web address] Not available 2022 10:40:20 Father Pulmonary embolism dec [email or web address] Not available 2022 10:40:34 Medical History No medical history recorded. Gynecological HistoryNo gynecological history recorded. Obstetrics History GPAL:G 0 P 0 0 0 0 Past Encounters Encounter ID Performer Location Encounter Start Date Encounter Closed Date Diagnosis/Indication Diagnosis SNOMED-CT Code Diagnosis ICD10 Code Diagnosis IMO Codes Diagnosis Note [id number] Esau Arciniega Jr, MD [facility] [address] [address] 07/15/2023 09:27:15 07/15/2023 11:15:41 Recurrent urinary tract infection 263055002 N39.0 Patient with history of recurring urinary [...] (MEDICARE REPLACEMENT/ ADVANTAGE - HMO) Maribel Simmonscell [id number] Maribel Con Notes Date Note Type Note Provider Name and Address Organization Details Recorded Time 07/15/2023 text/html Patient is a 37-year-old female with history of urethral stenosis. She comes in today complaining of some painful urination. She has required urethral dilations in the past and is worried that she may need another. She previously saw a urologist in [facility]. Her bladder scan today shows a residual of 10 cc and her urinalysis is within normal limits. She gives a history of 3-4 urinary tract infections per year. Her symptoms are typically dysuria and urinary frequency. Esau Arciniega Jr, MD [address] [place] [address], [address], [place], [address], [facility] & [place] 07/20/2023 16:43:21 OBGyn Episode No OBEpisode recorded.
[2025-07-18 21:59] VITALS: BP 156/88; PULSE 114; RESP 16; TEMP 37; O2SAT 94
--- NOTE | 2025-07-18 22:01 | XR_ITS ---
PROCEDURE INFORMATION: Exam: XR Chest Exam date and time: 07/18/2025 9:58 PM Age: 39 years old Clinical indication: Cough; Additional info: Cough, SOB TECHNIQUE: Imaging protocol: Radiologic exam of the chest. Views: 2 views. COMPARISON: CR XR CHEST PORTABLE 03/24/2025 6:36 AM FINDINGS: Lungs: Low lung volumes. Pulmonary vasculature grossly normal. No gross pulmonary infiltrates or edema pattern. Question mild bilateral peribronchial thickening suspicious for bronchitis. Pleural spaces: No pleural effusion. No pneumothorax. Heart/Mediastinum: Heart size normal. No tracheal/mediastinal shift. Bones/joints: No acute osseous abnormalities are identified. IMPRESSION: Question mild peribronchial thickening suspicious for bronchitis. No gross pulmonary infiltrates.
[2025-07-18 22:33] LABS: Coronavirus 19, PCR Not Detected (NotDetected); Influenza A, PCR Not Detected (NotDetected); Influenza B, PCR Not Detected (NotDetected)
[2025-07-18] MEDS: KETOROLAC 30MG/ML VIAL 15 MG IV (22:36)
[2025-07-18] MEDS: LACTATED RINGERS 1000ML 1,000 ML 999 ML IV (22:37)
--- NOTE | 2025-07-18 22:38 | ED_ITS ---
Discharge Plan Disposition Patient Disposition: Home, Self-Care Condition: Good Prescriptions Prescriptions: New benzonatate 100 mg capsule 100 mg PO TID PRN (Reason: cough) Qty: 14 0RF ibuprofen 200 mg tablet 400 mg PO TID PRN (Reason: pain) Qty: 20 0RF No Action acetaminophen 500 mg tablet 500 mg PO TID PRN (Reason: Pain) hydroxyzine pamoate 50 mg capsule 50 mg PO DIRECTED PRN (Reason: Anxiety) loperamide 2 mg capsule 2 mg PO Q3HWA divalproex 500 mg tablet,delayed release (DR/EC) 1,000 mg PO HS bisoprolol fumarate 5 mg tablet 5 mg PO DAILY benztropine 1 mg tablet 1 mg PO BID mirtazapine 15 mg tablet 15 mg PO HS divalproex 500 mg tablet,delayed release (DR/EC) 500 mg PO ONCE Rx Instructions: 500mg every morning atorvastatin 20 mg tablet PO methenamine hippurate 1 gram tablet PO famotidine 20 mg tablet PO ascorbic acid (vitamin C) 500 mg tablet PO polyethylene glycol 3350 17 gram/dose powder PO cyclobenzaprine 5 mg tablet PO cholecalciferol (vitamin D3) 1,250 mcg (50,000 unit) capsule PO cetirizine 10 mg tablet,disintegrating 10 mg PO DAILY multivit with min-folic acid [Vitajoy Adult Multi] 200 mcg tablet,chewable PO risperidone 4 mg tablet 4 mg PO BID azelastine 137 mcg (0.1 %) spray,non-aerosol See Rx Instructions .ROUTE .COMPLEX Qty: 30 3RF Dose Instruction: INSTILL 2 SPRAYS IN EACH NOSTRIL TWICE DAILY Rx Instructions: INSTILL 2 SPRAYS IN EACH NOSTRIL TWICE DAILY ondansetron HCl 4 mg Tablet 4 mg PO Q8H pantoprazole 40 mg tablet,delayed release (DR/EC) See Rx Instructions .ROUTE .COMPLEX Rx Instructions: GIVE 1 TABLET BY MOUTH ONCE DAILY medroxyprogesterone 150 mg/mL suspension See Rx Instructions .ROUTE .COMPLEX Rx Instructions: INJECT 1ML (150MG) I.M. 150MG EVERY 3 MONTHS Referrals Follow up/Referrals: Provider,Referral, MD [Primary Care Provider, Medical] - See instructions Activity Restrictions/Add. Instructions Additional Instructions/Restrictions: You were evaluated in the ER and are believed to be appropriate for discharge at this time. Take the prescribed medications as directed. Drink water and eat a small snack each time you take the ibuprofen to avoid side effects. Follow-up with your primary care doctor in 2-3 days. They should recheck your sodium and your other symptoms. Return to the ER with any new, worsening, or otherwise concerning symptoms Clinical Impressions Clinical Impression: Cough, Chest wall pain, Tachycardia, Hyponatremia Instructions Patient Instructions: Cough Print Language Print Language: Kinyarwanda Discharge ED Provider: Kevin Goode General Adult HPI <Kevin Goode MD - Last Filed: 07/18/25 22:59> General Chief complaint: Cough Stated complaint: Rib Pain Time Seen by Provider: 07/18/25 22:14 Mode of Arrival: EMS Source of Information: Patient and EMS Description of Symptoms (Recalled from ER Triage Doc. by RN): PT brought to the ED via [facility] for evaluation of hurting when she coughs. PT stated she has been feeling bad for a few days and has went to the doctor and was prescribed cough syrup. PT denies chest pain. PT stated she has been coughing up yellow sputum. Pain with inspiration. EMS stated O2 sat was 88 upon their arrival, 2L NC applied. History of Present Illness HPI narrative: Patient is a 39-year-old female resident of [place] presents today by EMS after having right inferolateral chest wall discomfort while coughing. This has been ongoing for the last several days. She was prescribed cough syrup. EMS picked the patient up and stated that she had initial oxygen saturation of 88%. She has no underlying lung or heart problems or other significant medical problems. She was placed on 2 L nasal cannula prior to arrival. She was also tachycardic and route. Patient denies any fevers or chills lower extremity swelling history of PE or DVT or other concerns. Related Data Home Medications ?Medication ?Instructions ?Recorded ?Confirmed acetaminophen 500 mg tablet 500 mg PO TID PRN Pain 04/06/25 hydroxyzine pamoate 50 mg capsule 50 mg PO DIRECTED PRN Anxiety 11/12/22 04/06/25 loperamide 2 mg capsule 2 mg PO Q3HWA dirrhea 04/06/25 benztropine 1 mg tablet 1 mg PO BID parkinson diseas e 11/26/22 04/06/25 bisoprolol fumarate 5 mg tablet 5 mg PO DAILY blood pr essure 11/26/22 04/06/25 divalproex 500 mg tablet,delayed 1,000 mg PO HS seizur es 11/26/22 04/06/25 release mirtazapine 15 mg tablet 15 mg PO HS Depression 11/2604/06/25 medroxyprogesterone 150 mg/mL See Rx Instructions .Rou te 01/20/23 04/06/25 intramuscular suspension .COMPLEX Supplement ondansetron HCl 4 mg tablet 4 mg PO Q8H Nausea & vomit ing 01/20/23 04/06/25 pantoprazole 40 mg tablet,delayed See Rx Instructions .Route 01/20/23 04/06/25 release .COMPLEX gerd ascorbic acid (vitamin C) 500 mg PO 03/09/25 04/06/25 tablet atorvastatin 20 mg tablet mg PO 03/09/25 04/06/25 cetirizine 10 mg disintegrating 10 mg PO DAILY 5 04/06/25 tablet cholecalciferol (vitamin D3) 1,250 PO 03/09/25 5 mcg (50,000 unit) capsule cyclobenzaprine 5 mg tablet mg PO 03/09/25 04/06/25 famotidine 20 mg tablet mg PO 03/09/25 04/06/25 methenamine hippurate 1 gram tablet g PO 03/09/2503/21 multivitamin with minerals-folic tab PO 03/09/2504/06 acid 200 mcg chewable tablet (Vitajoy Adult Multi) polyethylene glycol 3350 17 g PO 03/09/25 04/06/25 gram/dose oral powder divalproex 500 mg tablet,delayed 500 mg PO ONCE seizur es 04/06/25 04/06/25 release risperidone 4 mg tablet 4 mg PO BID 04/06/25 5 Previous Rx's ?Medication ?Instructions ?Recorded azelastine 137 mcg (0.1 %) nasal See Rx Instructions . Route 05/30/25 spray .COMPLEX #30 mL benzonatate 100 mg capsule 100 mg PO TID PRN cough #14 caps 07/18/25 ibuprofen 200 mg tablet 400 mg (2 x 200 mg) PO TID P RN 07/18/25 pain #20 tabs Allergies Allergy/AdvReac Type Severity Reaction Status Date / Time latex Allergy Verified 04/06/25 07:40 guaifenesin (From Mucinex) AdvReac Verified 04/06/25 07:40 pseudoephedrine (From AdvReac Verified 04/06/25 07:40 Sudafed) [facility] <Kevin Goode MD - Last Filed: 07/18/25 22:59> [facility] Disclaimer: The information contained in this section may have been updated after the patient was seen, as this information can be updated by other users. Medical History Chronic eustachian tube dysfunction Impacted cerumen, right ear Hearing loss Ear pain Epidermal inclusion cyst History of stroke History of cancer Diabetes Hyperlipidemia Atypical chest pain Encounter for pre-operative cardiovascular clearance Abnormal electrocardiogram [ECG] [EKG] Personality disorder Mood disorder Sleep apnea Chronic cholecystitis with calculus Bicornuate uterus Schizophrenia History of prediabetes Borderline personality disorder Seizure disorder Depression Anxiety Hypertension Surgical History History of laparoscopic cholecystectomy S/P cystourethroscopy with dilation of urethral stricture [place] teeth extracted Family History Other Alcoholism Asthma Bleeding disorder Cancer Coronary artery disease Depression Diabetes FHx: mental illness Heart attack Hyperlipidemia Hypertension Kidney disease SAMMY (obstructive sleep apnea) Obesity (BMI 30.0-34.9) Stroke Substance abuse Social History Smoking Status: Current every day smoker alcohol intake: never substance use type: denies use current occupational status: unemployed and other Travel in the last 8 weeks?: None household members: other details: At [place] housing: assisted living facility Have you lived/traveled outside [place] in past 30 days?: No Contact w/someone who lives/traveled outside US past 30 days?: No Exposure to someone with infectious disease in past 14 days?: No Do you have a fever (greater than 100.4 F or 38 C)?: No Have you tested positive for COVID-19?: No Exposed to someone with COVID-19 in past 14 days?: No Do you have a sore throat?: No Do you have a cough?: No Do you have any weakness?: No Do you have any diarrhea?: No Are you experiencing any unusual bleeding?: No Do you have any muscle aches/pain?: No Do you have any abdominal pain?: No Are you experiencing loss of taste or smell?: No Other Medical History Have you received the Flu Vaccine for this season: No Have you received the Pneumonia Vaccine: No <Kevin Goode MD - Last Filed: 07/18/25 22:59> ROS Obtained: Yes All systems reviewed & no additional complaints except as documented Physical Exam <Kevin Goode MD - Last Filed: 07/18/25 22:59> General General appearance: alert Chest Chest inspection: Present tenderness (Right lateral chest wall tenderness) Respiratory Respiratory exam: Present normal lung sounds bilaterally and other (Oxygen saturations 93 to 94% on room air when taken off of the oxygen supplement); Absent respiratory distress or wheezes Cardiovascular Cardiovascular exam: Present normal rhythm and tachycardia Neurological Exam Neurological exam: Present alert and oriented X3 Medical Decision Making <Kevin Goode MD - Last Filed: 07/18/25 22:59> Medical Records Screening: Per USPSTF and CDC recommendations, given the prevalence of disease in our region, it is our hospital?s policy to screen for HIV and viral Hepatitis for all patients aged 18 and over and those with ongoing risk factors. [place]sequiel Inquiry Pt receiving controlled substance: No Vital Signs: 07/18/25 21:53 07/18/25 21:59 07/18/25 23:11 Temperature 98.6 F 98.6 F 98.1 F Temperature Source Oral Oral Pulse Rate 114 H 97 H Pulse Rate [Right] 114 H Respiratory Rate 16 16 22 Blood Pressure 156/88 H 133/88 Blood Pressure [Right Arm] 156/88 H Blood Pressure Mean [Right Arm] 110 02 Sat by Pulse Oximetry 94 L 94 L 95 Oxygen Delivery Method Room Air Room Air Room Air 07/18/25 23:12 Temperature 98.1 F Temperature Source Pulse Rate 97 H Pulse Rate [Right] Respiratory Rate 20 Blood Pressure 133/88 Blood Pressure [Right Arm] Blood Pressure Mean [Right Arm] 02 Sat by Pulse Oximetry Oxygen Delivery Method Room Air Lab Data Lab Results 07/18/25 22:25: SARS-CoV-2 (PCR) Not detected, Influenza A Untype (PCR) Not detected, Influenza Type B (PCR) Not detected 07/18/25 22:32: WBC 10.5, RBC 4.48, Hgb 13.1, Hct 38.5, MCV 85.9, MCH 29.2, MCHC 34.0, RDW 13.3, Plt Count 194, MPV 9.3, Neut % (Auto) 57.4, Lymph % (Auto) 30.8, [place] % (Auto) 10.1 H, Eos % (Auto) 1.2, Baso % (Auto) 0.2, Neut # (Auto) 6.0, Lymph # (Auto) 3.2, [place] # (Auto) 1.1 H, Eos # (Auto) 0.1, Baso # (Auto) 0.0, S odium 129 L, Potassium 3.5, Chloride 92 L, Carbon Dioxide 29, Anion Gap 11.5, B UN 4 L, Creatinine 0.60, Estimated Creat Clear 169, Estimated GFR 111, Est GFR ( Amer) 134, Glucose 165 H, Calcium 9.0, Total Bilirubin 0.4, AST 30, ALT 20, Alkaline Phosphatase 98, Total Protein 6.7, Albumin 3.0 L, Globulin 3.7 H, A lbumin/Globulin Ratio 0.8 L 07/18/25 22:32 07/18/25 22:32 Orders (Tests/Meds): ED MEDICATIONS Discontinued Medications Generic Name Dose Route Start Last Admin Trade Name Freq PRN Reason Stop Dose Admin Lactated Ringer's 1,000 mls @ 999 mls/hr 07/18/25 22:30 07/18/25 23:14 Lactated Ringer's 1000 Ml Bag IV 07/18/25 23:30 Infused .Q1H1M MARK Infusion Ketorolac Tromethamine 15 mg 07/18/25 22:16 07/18/25 22:36 Ketorolac 30mg/Ml Vial IV 07/18/25 22:17 15 mg ONCE ONE Administration ORDERS Category Date Time Status Chest XR 2 view (NOT portable) [XR chest 2V] Stat Exams 07/18/25 22:01 Completed CBC w/Auto Diff [Complete Blood Count Auto Diff] Stat Lab 07/18/25 22:32 Completed CMP [Comprehensive Metabolic Panel] Stat Lab 07/18/25 22:32 Completed Rapid PCR Covid and Flu A/B Stat Lab 07/18/25 22:25 Completed Medical Decision Narrative: 39-year-old presents today with 4 days of cough and right lateral chest wall discomfort while coughing most likely musculoskeletal strain. Could be a peripheral infarction or pneumonia etc. She is tachycardic and was not hypoxic on our evaluation even though EMS stated that she was 88% on room air when they first arrived. She is been 93-94 on room air here. 2 view chest x-ray was performed which I personally interpreted shows no evidence of any consolidation or peripheral infarction noted. I do not believe this is a pulmonary embolism. She also has no abdominal discomfort to suggest that this is gallbladder or kidney related in that region. Seems to be clearly infectious associated with this respiratory illness and associated chest wall discomfort from coughing. Given her tachycardia we will give her IV fluids and Toradol and reassess. Care transitioned to Dr. Allen at 11 pm. <Jourdan Allen MD - Last Filed: 07/18/25 23:57> Vital Signs: 07/18/25 21:53 07/18/25 21:59 07/18/25 23:11 Temperature 98.6 F 98.6 F 98.1 F Temperature Source Oral Oral Pulse Rate 114 H 97 H Pulse Rate [Right] 114 H Respiratory Rate 16 16 22 Blood Pressure 156/88 H 133/88 Blood Pressure [Right Arm] 156/88 H Blood Pressure Mean [Right Arm] 110 02 Sat by Pulse Oximetry 94 L 94 L 95 Oxygen Delivery Method Room Air Room Air Room Air 07/18/25 23:12 Temperature 98.1 F Temperature Source Pulse Rate 97 H Pulse Rate [Right] Respiratory Rate 20 Blood Pressure 133/88 Blood Pressure [Right Arm] Blood Pressure Mean [Right Arm] 02 Sat by Pulse Oximetry Oxygen Delivery Method Room Air Lab Data Lab Results 07/18/25 22:25: SARS-CoV-2 (PCR) Not detected, Influenza A Untype (PCR) Not detected, Influenza Type B (PCR) Not detected 07/18/25 22:32: WBC 10.5, RBC 4.48, Hgb 13.1, Hct 38.5, MCV 85.9, MCH 29.2, MCHC 34.0, RDW 13.3, Plt Count 194, MPV 9.3, Neut % (Auto) 57.4, Lymph % (Auto) 30.8, [place] % (Auto) 10.1 H, Eos % (Auto) 1.2, Baso % (Auto) 0.2, Neut # (Auto) 6.0, Lymph # (Auto) 3.2, [place] # (Auto) 1.1 H, Eos # (Auto) 0.1, Baso # (Auto) 0.0, S odium 129 L, Potassium 3.5, Chloride 92 L, Carbon Dioxide 29, Anion Gap 11.5, B UN 4 L, Creatinine 0.60, Estimated Creat Clear 169, Estimated GFR 111, Est GFR ( Amer) 134, Glucose 165 H, Calcium 9.0, Total Bilirubin 0.4, AST 30, ALT 20, Alkaline Phosphatase 98, Total Protein 6.7, Albumin 3.0 L, Globulin 3.7 H, A lbumin/Globulin Ratio 0.8 L Orders (Tests/Meds): ED MEDICATIONS Discontinued Medications Generic Name Dose Route Start Last Admin Trade Name Freq PRN Reason Stop Dose Admin Lactated Ringer's 1,000 mls @ 999 mls/hr 07/18/25 22:30 07/18/25 23:14 Lactated Ringer's 1000 Ml Bag IV 07/18/25 23:30 Infused .Q1H1M MARK Infusion Ketorolac Tromethamine 15 mg 07/18/25 22:16 07/18/25 22:36 Ketorolac 30mg/Ml Vial IV 07/18/25 22:17 15 mg ONCE ONE Administration ORDERS Category Date Time Status Chest XR 2 view (NOT portable) [XR chest 2V] Stat Exams 07/18/25 22:01 Completed CBC w/Auto Diff [Complete Blood Count Auto Diff] Stat Lab 07/18/25 22:32 Completed CMP [Comprehensive Metabolic Panel] Stat Lab 07/18/25 22:32 Completed Rapid PCR Covid and Flu A/B Stat Lab 07/18/25 22:25 Completed Medical Decision Narrative: 39-year-old presents today with 4 days of cough and right lateral chest wall discomfort while coughing most likely musculoskeletal strain. Could be a peripheral infarction or pneumonia etc. She is tachycardic and was not hypoxic on our evaluation even though EMS stated that she was 88% on room air when they first arrived. She is been 93-94 on room air here. 2 view chest x-ray was performed which I personally interpreted shows no evidence of any consolidation or peripheral infarction noted. I do not believe this is a pulmonary embolism. She also has no abdominal discomfort to suggest that this is gallbladder or kidney related in that region. Seems to be clearly infectious associated with this respiratory illness and associated chest wall discomfort from coughing. Given her tachycardia we will give her IV fluids and Toradol and reassess. Care transitioned to Dr. Allen at 11 pm. Allen: Upon my assumption of care patient is stable, resting comfortably. She was 98% on room air when I assessed her. She has no adventitious sounds in the lungs, no respiratory distress, pain in the right chest wall has resolved since receiving medications. I agree with the assessment and plan from Dr. Goode I do not believe this is cardiac in nature or PE based on her symptomatic resolution with conservative management. I noted her hyponatremia which has been on a gradual, steady decline. This does not appear acute and patient is not symptomatic from it and this can be followed up outpatient. She is no longer tachycardic, her vitals have normalized, and she is resting comfortably with pain controlled, I believe she is appropriate for discharge at this time. I prescribed benzonatate and ibuprofen for outpatient management of symptoms and instructed the patient on use of these. They were sent to the pharmacy which provides medications to the facility where she lives. Patient was given instructions on symptomatic management, follow up instructions including to have her labs rechecked by PCP regarding her hyponatremia, and return precautions for the emergency department. Patient indicated understanding and was discharged in stable condition. Critical Care <Kevin Goode MD - Last Filed: 07/18/25 22:59> Critical Care Time Critical Care Time: No
[2025-07-18 22:40] LABS: Hematocrit 38.5 % (37.0-47.0); Hemoglobin 13.1 g/dL (12.2-16.2); Immature Granulocytes % 0.3 %; Mean Corpuscular HGB Conc 34.0 g/dL (31.8-35.4); Mean Corpuscular Hemoglobin 29.2 pg (27.0-31.2); Mean Corpuscular Volume 85.9 fl (81-99); Nucleated Red Blood Cells % 0 %; Platelet Count 194 K/mm3 (142-424); Red Blood Count 4.48 M/mm3 (4.20-5.40); Red Cell Distribution Width-SD 41.9 fL; White Blood Count 10.5 K/mm3 (4.8-10.8)
[2025-07-18 22:57] LABS: Alanine Aminotransferase 20 U/L (12-78); Albumin Level 3.0 g/dl (3.5-5.0); Albumin/Globulin Ratio 0.8 (1.1-1.8); Alkaline Phosphatase 98 U/L (38-126); Anion Gap 11.5 mEq/L (5-15); Aspartate Amino Transferase 30 U/L (14-36); Bilirubin,Total 0.4 mg/dl (0.2-1.3); Blood Urea Nitrogen 4 mg/dl (7-17); Calcium 9.0 mg/dl (8.4-10.2); Carbon Dioxide 29 mmol/L (22.0-30.0); Chloride 92 mmol/L (98-107); Creatinine Clearance Estimated 169 mL/min (50-200); Creatinine,Serum 0.60 mg/dl (0.52-1.04); Estimated Glomerular Filt Rate 111 ml/min (>60); GFR (African American) 134 ML/MIN (>60); Globulin 3.7 g/dL (1.3-3.2); Glucose 165 mg/dl (74-100); Potassium 3.5 mmoL/L (3.5-5.1); Sodium 129 mmol/L (136-145); Total Protein,Serum 6.7 g/dl (6.3-8.2)
[2025-07-18 23:11] VITALS: BP 133/88; PULSE 97; RESP 22; TEMP 36.7; O2SAT 95
[2025-07-18 23:12] VITALS: BP 133/88; PULSE 97; RESP 20; TEMP 36.7; O2SAT 98
== END 2025-07-18 23:19 | disposition home or self-care (01) ==
PROVIDERS: Emergency Provider Student in an Organized Health Care Education/Training Program
DX: R07.89 Other chest pain (principal); E87.1 Hypo-osmolality and hyponatremia; R00.0 Tachycardia, unspecified; F17.210 Nicotine dependence, cigarettes, uncomplicated; R05.9 Cough, unspecified
CPT/HCPCS: 71046; 80053; 85025; 87636; 96361; 96374; 99284; J1885; J7120